=== PATIENT | male | born 1955 | race Caucasian/White ===

== ENCOUNTER 2017-05-02 15:17 | Inpatient (IN) ==
--- NOTE | 2017-05-02 15:58 | Emergency Department Note ---
Disposition Clinical Impression: Cellulitis Qualifiers: Site of cellulitis: extremity Site of cellulitis of extremity: lower extremity Laterality: unspecified laterality Qualified Code(s): L03.119 - Cellulitis of unspecified part of limb Fluid overload Qualifiers: Hypervolemia type: unspecified Qualified Code(s): E87.70 - Fluid overload, unspecified Disposition: Admitted As Inpatient Condition: Fair Referrals: NO,PCP [Non-Partnered Physician] - Forms: ED Satisfaction Letter Time of Disposition: 17:57 Extremity Problem HPI - General Chief complaint: ED Extremity Problem,Nontraumatic Stated complaint: swelling Time Seen by Provider: 05/02/17 15:51 Source: patient, family Limitations: no limitations Nursing Notes Reviewed: Yes Vital Signs Reviewed: Yes - History of Present Illness HPI Narrative: 61-year-old male comes in with a 24 pound weight gain over the last of week. Patient has a history of CHF. Also notes redness to the lower extremities warm to touch. Pt Subjective Complaint: extremity pain, extremity swelling Onset (ago): day(s) Consistency: constant Pain Scale: 8 Quality: aching Improves with: nothing Worsens with: nothing Associated symptoms: Reports: shortness of breath - Related Data Home Medications Medication Instructions Recorded Confirmed Albuterol Sulfate [Proair HFA] 1 puff IH Q6H 09/12/15 01/10/17 Amlodipine [Amlodipine Besylate] 10 mg PO DAILY 09/12/15 01/10/17 Diazepam [Valium] 10 mg PO BID PRN 09/12/15 01/10/17 Furosemide [Lasix] 40 mg PO BID 09/12/15 01/10/17 Labetalol [Trandate] 300 mg PO BID 09/12/15 01/10/17 Levothyroxine [Synthroid] 100 mcg PO DAILY 09/12/15 01/10/17 Metformin HCl [Glucophage] 1,000 mg PO BID 09/12/15 01/10/17 Acyclovir [Zovirax] 400 mg PO TID PRN 11/05/16 01/10/17 Bumetanide [Bumex] 1 mg PO DAILY 11/05/16 01/10/17 DiphenhydraMINE [Benadryl] 25 mg PO Q4HR PRN 11/05/16 01/10/17 Nitroglycerin [Nitrostat] 0.4 mg SL Q5M PRN 11/05/16 01/10/17 Oxycodone HCl/Acetaminophen 1 each PO QID PRN 11/05/16 01/10/17 [Percocet 10-325 mg Tablet] Potassium Chloride [K-Tab ER] 20 meq PO DAILY 11/05/16 01/10/17 Allergies Allergy/AdvReac Type Severity Reaction Status Date / Time No Known Allergies Allergy Verified 01/10/17 15:57 All systems ED: reviewed and negative except as stated. Constitutional: Denies: fever, chills, weakness, weight change Eyes: Denies: eye pain, eye discharge, vision change ENT ED: Denies: ear pain, throat pain, dental pain, hearing loss, epistaxis, congestion, dysphagia Cardiovascular: Denies: chest pain, palpitations, dyspnea on exertion, edema, syncope Respiratory: Denies: cough, dyspnea, wheezes, hemoptysis, stridor Gastrointestinal: Denies: abdominal pain, nausea, vomiting, diarrhea, constipation, hematemesis, melena, hematochezia Genitourinary: Denies: urgency, dysuria, frequency, hematuria Musculoskeletal: Reports: other (Lower extremity edema). Denies: back pain, neck pain, arthralgia, myalgia Integumentary: Denies: rash, abrasion, lesions Neurological: Denies: headache, weakness, numbness, paresthesias, confusion, abnormal gait, vertigo Psychiatric: Denies: anxiety, depression, suicidal thoughts, homicidal thoughts , auditory hallucinations, visual hallucinations Endocrine: Denies: fatigue Hematological/Lymphatic: Denies: easy bleeding, easy bruising Allergic/Immunologic: Denies: facial swelling, urticaria Past Medical History - Past Medical History Medical history: Reports: arthritis, asthma, CHF, diabetes, hyperlipidemia, hypertension, myocardial infarction, thyroid disease, other Surgical history: Reports: non-contributory, other (rib fractures; eye surgery) Psychiatric history: Reports: anxiety - Social History Smoking Status: Never smoker Smokeless Tobacco Status: No Alcohol use: Reports: none Drug use: Reports: none Physical Exam - General Limitations: no limitations General appearance: alert, in no apparent distress - Head Head exam: atraumatic, normocephalic, normal inspection - Eye Eye exam: Present: normal appearance, PERRL, EOMI - ENT ENT exam: normal exam, normal oropharynx, mucous membranes moist - Neck Neck exam: Present: normal inspection, full ROM, trachea midline - Chest Chest inspection: Present: normal inspection, symmetric chest wall rise - Respiratory Respiratory exam: Present: normal lung sounds bilaterally - Cardiovascular Cardiovascular exam: Present: regular rate, normal rhythm, normal heart sounds - Abdominal Exam Abdominal exam: Present: soft, Non-Tender. Absent: tenderness, distention, guarding, rebound, rigidity - Female Agricultural Extension Specialist present during exam: No - Extremities Exam Extremities exam: Present: pedal edema - Expanded Lower Extremity Exam Neurovascular/Tendon exam: Absent: motor deficit, sensory deficit, tendon deficit Gait: other - Back Exam Back exam: Present: normal inspection, full ROM. Absent: tenderness - Neurological Exam Neurological exam: Present: alert, oriented X3 - Psychiatric Psychiatric exam: Present: normal affect, normal mood - Skin Skin exam: Present: warm, dry, intact, normal color Course - Reevaluation(s) Reevaluation #1: 61-year-old with a history of CHF diabetes comes in with redness of his lower extremities a 24 pound weight gain over the last 2 weeks. Workup noted an elevated white count chest x-ray shows findings consistent with fluid overload versus pneumonia although his symptoms seemed to be more of fluid overload. Patient's lower legs that are red and appear to be cellulitic with Zosyn and vancomycin which will cover his lungs also. Diurese him with some IV Lasix. Time: 17:51 - Consultations Consultation #1: Discussed B[place] Abreu, admit Time: 17:51 Vital Signs Temperature 98.4 F 05/02/17 15:44 Pulse Rate 78 05/02/17 15:44 Respiratory Rate 18 05/02/17 15:44 Blood Pressure 172/84 05/02/17 15:44 O2 Sat by Pulse Oximetry 94 05/02/17 15:44 Temperature 98.4 F 05/02/17 15:44 Pulse Rate 76 05/02/17 16:41 Respiratory Rate 18 05/02/17 16:41 Blood Pressure 165/88 05/02/17 16:41 O2 Sat by Pulse Oximetry 95 05/02/17 16:41 Oxygen Delivery Oxygen Delivery Room Air Extremity Problem, Nontraumati - Lab Data Result diagrams: 05/02/17 16:31 05/02/17 16:31 Lab Results 0605/02/17 05/02/17 Range/Units 16:31 16:31 16:31 WBC 13.9 H (4.3-11.1) K/mcL RBC 4.71 (4.19-5.50) M/mcL Hgb 10.1 L (12.9-16.9) g/dL Hct 34.9 L (37.5-50.1) % MCV 74.1 L (83.0-100.0) fL MCH 21.4 L (28.0-33.3) pg MCHC 28.9 L (31.6-35.5) g/dL RDW 17.1 H (11.5-14.5) % Plt Count 503 H (140-400) K/mcL MPV 8.6 L (9.4-12.4) fL Immature Gran % 0.4 (0-4) % Seg Neutrophils % 83.0 % Lymphocytes % 9.1 % Monocytes % 6.0 % Eosinophils % 1.0 % Basophils % 0.5 % Neutrophils # 11.5 H (1.6-8.9) K/mcL Lymphocytes # 1.3 (0.6-4.6) K/mcL Monocytes # 0.8 (0.0-1.3) K/mcL Eosinophils # 0.1 (0.0-0.6) K/mcL Basophils # 0.1 (0.0-0.2) K/mcL Immature Plt Fraction 1.5 (1.1-6.1) % Hypochromasia Present A (Not Present) Sodium 140 (136-145) mEq/L Potassium 3.3 L (3.5-4.5) mEq/L Chloride 103 (98-109) mEq/L Carbon Dioxide 26 (19-29) mEq/L BUN 7 L (8-26) mg/dL Creatinine 0.88 (0.72-1.25) mg/dL Est GFR ( Amer) > 60 (> 60) Est GFR (Non-Af Amer) > 60 (> 60) BUN/Creatinine Ratio 8 (6-26) Glucose 101 H (70-99) mg/dL Calculated Osmolality 288 (280-300) Lactic Acid 1.8 (0.5-2.2) mmol/L Calcium 9.2 (8.6-10.8) mg/dL Troponin I (0-0.03) ng/mL B-Natriuretic Peptide (0-100) pg/mL 05/02/17 05/02/17 Range/Units 16:31 16:31 WBC (4.3-11.1) K/mcL RBC (4.19-5.50) M/mcL Hgb (12.9-16.9) g/dL Hct (37.5-50.1) % MCV (83.0-100.0) fL MCH (28.0-33.3) pg MCHC (31.6-35.5) g/dL RDW (11.5-14.5) % Plt Count (140-400) K/mcL MPV (9.4-12.4) fL Immature Gran % (0-4) % Seg Neutrophils % % Lymphocytes % % Monocytes % % Eosinophils % % Basophils % % Neutrophils # (1.6-8.9) K/mcL Lymphocytes # (0.6-4.6) K/mcL Monocytes # (0.0-1.3) K/mcL Eosinophils # (0.0-0.6) K/mcL Basophils # (0.0-0.2) K/mcL Immature Plt Fraction (1.1-6.1) % Hypochromasia (Not Present) Sodium (136-145) mEq/L Potassium (3.5-4.5) mEq/L Chloride (98-109) mEq/L Carbon Dioxide (19-29) mEq/L BUN (8-26) mg/dL Creatinine (0.72-1.25) mg/dL Est GFR ( Amer) (> 60) Est GFR (Non-Af Amer) (> 60) BUN/Creatinine Ratio (6-26) Glucose (70-99) mg/dL Calculated Osmolality (280-300) Lactic Acid (0.5-2.2) mmol/L Calcium (8.6-10.8) mg/dL Troponin I 0.01 (0-0.03) ng/mL B-Natriuretic Peptide 302 H (0-100) pg/mL
[2017-05-02 16:39] LABS: Hemoglobin 10.1 g/dL (12.9-16.9); Mean Corpuscular HGB Conc 28.9 g/dL (31.6-35.5)
[2017-05-02 16:41] LABS: Basophils # 0.1 K/mcL (0.0-0.2); Basophils % 0.5 %; Eosinophils # 0.1 K/mcL (0.0-0.6); Hematocrit 34.9 % (37.5-50.1); Immature Granulocytes % 0.4 % (0-4); Immature Platelets 1.5 % (1.1-6.1); Lymphocytes # 1.3 K/mcL (0.6-4.6); Lymphocytes % 9.1 %; Mean Corpuscular Hemoglobin 21.4 pg (28.0-33.3); Mean Corpuscular Volume 74.1 fL (83.0-100.0); Mean Platelet Volume 8.6 fL (9.4-12.4); Monocytes # 0.8 K/mcL (0.0-1.3); Neutrophils # 11.5 K/mcL (1.6-8.9); Platelet Count 503 K/mcL (140-400); Red Blood Count 4.71 M/mcL (4.19-5.50); Red Cell Distribution Width 17.1 % (11.5-14.5)
[2017-05-02 16:50] LABS: BUN/Creatinine Ratio 8 (6-26); Blood Urea Nitrogen 7 mg/dL (8-26); Calcium 9.2 mg/dL (8.6-10.8); Carbon Dioxide 26 mEq/L (19-29); Chloride 103 mEq/L (98-109); Glucose 101 mg/dL (70-99); Osmolality,Calculated 288 (280-300); Potassium 3.3 mEq/L (3.5-4.5); Sodium 140 mEq/L (136-145); eGFR For African Americans > 60 (> 60); eGFR For Non-African Americans > 60 (> 60)
[2017-05-02 16:57] LABS: Hypochromasia Present (Not Present)
[2017-05-02] MEDS ORDERED: Furosemide 40 MG/4 ML VIAL IVP ONE (17:40)
[2017-05-02] MEDS ORDERED: Vancomycin 1,000 MG in D5% in Water 250 ML IVPB ONE (17:40)
[2017-05-02] MEDS ORDERED: Piperacillin/Tazobactam 3.375 GM in D5% in Water (Mini-Bag+) 100 ML IVPB ONE (17:40)
[2017-05-02] MEDS ORDERED: Acetaminophen 325 MG TABLET PO PRN (19:47)
[2017-05-02] MEDS ORDERED: Naloxone 0.4 MG/ML INJ IVP PRN (19:47)
[2017-05-02] MEDS ORDERED: D5% in Water 1,000 ML IVC PRN (19:51)
[2017-05-02] MEDS ORDERED: *HR* Dextrose 50 % in Water (Syg) 50 ML SYRINGE IVP PRN (19:51)
[2017-05-02] MEDS ORDERED: Dextrose Gel 15 GM PO PRN ×2 (19:51)
[2017-05-02] MEDS ORDERED: Insulin LISPRO 300 UNITS/3 ML VIAL SQ SCH (21:00)
--- NOTE | 2017-05-02 22:35 | Internal Med History&Physical ---
Date of Encounter: 05/02/17 Time of Encounter: 21:00 Assessment and Plan (1) Acute exacerbation of CHF (congestive heart failure) Current visit: Yes Status: Acute Patient has been experiencing 25 pound weight gain over the past 2 weeks shortness of breath with exertion or orthopnea lower extremity edema decreased urinary output despite Lasix use. Chest x-rays consistent with fluid overload versus pneumonia. We will continue IV Lasix twice a day, 2 monitor intake and output daily weights 3 1500 mL fluid restriction 4 low sodium diet 5 oxygen as needed maintain SPO2 greater 92% Qualifiers: Congestive heart failure type: diastolic Qualified Code(s): I50.33 - Acute on chronic diastolic (congestive) heart failure (2) MARCI (obstructive sleep apnea) Current visit: No Status: Chronic 1 continue with CPAP at night (3) Diabetes mellitus Current visit: No Status: Chronic 1 we will hold oral antidiabetic for now Accu-Cheks before meals at bedtime with sliding-scale insulin Qualifiers: Diabetes mellitus type: type 2 Diabetes mellitus complication status: without complication Diabetes mellitus correction insulin use: without correction use Qualified Code(s): E11.9 - Type 2 diabetes mellitus without complications (4) Hypokalemia Current visit: No Status: Acute Potassium 3.3 We will replace potassium and recheck (5) Hypertension Current visit: No Status: Acute We will continue patient's home medications Qualifiers: Hypertension type: essential hypertension Qualified Code(s): I10 - Essential (primary) hypertension (6) DVT prophylaxis Current visit: Yes Status: Acute [facility] Internal Medicine - H&P: HPI Chief complaint: lower extremity edema Admitted From: Emergency Dept Plans for Post Hospital Care: Home History of present illness: Mr. Sommer is a 61 year old male past medical history of congestive heart failure obstructive sleep apnea hyperlipidemia hypertension [place] hypothyroid diabetes. According to the patient he has experienced 24 pound weight gain over the last 2 weeks. Patient does have a history of congestive heart failure is also experiencing lower extremity edema shortness of breath on exertion orthopnea he denies any chest pain. He does complain of lower extremity skin weeping with pain and tenderness particularly to his left leg. He has had difficulty ambulating and completing his ADLs. He admits to decreased urinary output despite Lasix use. He presented to the ER with the above complaints according to ER records lab work did not reveal some hypernatremia potassium 3.3 troponin was 0.01 WBC 13.9 chest x-ray was consistent with fluid overload versus possible pneumonia. He was given IV Lasix with blood cultures obtained patient was given Zosyn and vancomycin in the ER and has been admitted for further workup and evaluation. Presently patient is alert and appropriate he does not appear to be any respiratory distress. He denies any chest pain or shortness of breath at this time however he does admit to service of breath on exertion. His lung sounds have crackles in the bases bilaterally heart sounds with S1-S2 regular no rubs clicks gallops or murmurs noted. He does have 3-4+ pitting edema of lower extremities up to his knees bilaterally. His legs have multiple small wounds and ferrous stages of healing. Left leg is tender to palpation however his leg is only slightly red. Abdomen is obese with umbilical hernia noted soft nontender to palpation. He is hemodynamically stable at this time. I reviewed this case with Dr Hall who agrees with plan Past Med Surg Social Fam HX - Past Medical History Medical history: arthritis, asthma, CHF, diabetes, hyperlipidemia, hypertension , myocardial infarction, thyroid disease, other Psychiatric history: anxiety - Past Surgical History Surgical History: non-contributory, other - Social History Smoking Status: Never smoker Smokeless Tobacco Status: No Alcohol use: none Drug use: none - Family History Mother Family Member Ethnicity: Non- Age at : 65 Cause of : Heart Failure Hx Family Cardiac Disorders: Yes Hx Family Respiratory Disorders: Yes (COPD) Hx Family Endocrine Disorder: Yes (Diabetes) Father Family Member Ethnicity: Non- Age at : 33 Cause of : Heart Attack Hx Family Cardiac Disorders: Yes Hx Family Endocrine Disorder: Yes (Diabetes) Internal Medicine - H&P: Meds Albuterol Sulfate [Proair HFA] 1 puff IH Q6H 09/12/15 [History] Amlodipine [Amlodipine Besylate] 10 mg PO DAILY 09/12/15 [History] Diazepam [Valium] 10 mg PO BID PRN 09/12/15 [History] Furosemide [Lasix] 40 mg PO BID 09/12/15 [History] Labetalol [Trandate] 300 mg PO BID 09/12/15 [History] Levothyroxine [Synthroid] 100 mcg PO DAILY 09/12/15 [History] Metformin HCl [Glucophage] 1,000 mg PO BID 09/12/15 [History] Acyclovir [Zovirax] 400 mg PO TID PRN 11/05/16 [History] Bumetanide [Bumex] 1 mg PO DAILY 11/05/16 [History] DiphenhydraMINE [Benadryl] 25 mg PO Q4HR PRN 11/05/16 [History] Nitroglycerin [Nitrostat] 0.4 mg SL Q5M PRN 11/05/16 [History] Oxycodone HCl/Acetaminophen [Percocet 10-325 mg Tablet] 1 each PO QID PRN [History] Potassium Chloride [K-Tab ER] 20 meq PO DAILY 11/05/16 [History] Allergies No Known Allergies Allergy (Verified 01/10/17 15:57) All Systems PM: A 10-system review of systems was performed and is negative for pertinent findings except as documented above in the HPI. - Constitutional Constitutional: no chills, no fever(s), no night sweats - EENT Eyes: no change in vision, no discharge, no pain, no photophobia Nose, mouth and throat: no dysphagia, no nasal discharge, no neck pain, no sore throat - Cardiovascular Cardiovascular ROS IM: dyspnea on exertion, edema, no chest pain, no diaphoresis , no dyspnea, no lightheadedness, no palpitations, no syncope - Respiratory Respiratory: dyspnea on exertion, no cough, no dyspnea, no wheezing, no excessive phlegm production - Gastrointestinal Gastrointestinal: no abdominal pain, no diarrhea, no hematemesis, no hematochezia, no melena, no nausea, no vomiting - Musculoskeletal Musculoskeletal ROS IM: no numbness, no tingling - Integumentary Integumentary IM: erythema, sores - Neurological Neurological ROS: no confusion, no convulsions, no focal weakness, no numbness, no tingling, no tremor(s) - Hematologic/Lymphatic Hematologic/Lymphatic: no easy bruising - Constitutional Vitals: Temp Pulse Resp BP Pulse Ox 98 F 88 18 181/77 95 05/02/17 20:01 05/02/17 20:01 05/02/17 20:01 05/02/17 20:01 05/02/17 20:01 General appearance: Present: A&O X 3, morbidly obese - Head Head exam: Present: atraumatic, normocephalic - Eye Eye exam: Present: PERRL, conjuntiva pink, sclera anicteric Pupils: Present: PERRL - Neck Neck exam general surgery: Present: supple, trachea midline. Absent: lymphadenopathy - Respiratory Respiratory exam: Absent: accessory muscle use, rales, rhonchi, wheezes Additional comments: Crackles in bases bilaterally - Cardiovascular Cardiovascular exam: Present: RRR, +S1, +S2. Absent: diastolic murmur, gallop, rubs, systolic murmur - GI/Abdominal GI/Abdominal exam: Present: hernia, normal bowel sounds, soft, no peritoneal signs. Absent: distended, tenderness - Extremities Exam Extremities exam: Present: warm, radial pulses palpable and symetrical. Absent : calf tenderness, cyanotic, pedal edema - Neurological Exam Neurological exam: Present: CN II-XII intact, oriented X3, no focal deficits. Absent: pronater drift, facial droop, speech deficit - Skin Skin exam: Present: dry, intact Internal Med - H&P Results - Labs CBC & Chem 7: 05/02/17 16:31 05/02/17 16:31 - EKG Data EKG shows normal: sinus rhythm - Diagnostic Studies Other Images Additional comments: Chest X-Ray 05/02/17 15:55 IMPRESSION: 1. Asymmetric opacity within the right perihilar space and right lung base, likely representing asymmetric pulmonary edema and/or pneumonia. 2. Mild right hilar enlargement, which could represent either lymphadenopathy or a right hilar mass. Consider a follow-up chest CT with contrast for more detailed evaluation. 3. Stable cardiomegaly. D/ / Rl Navarro MD / Rl Navarro MD Interpreting Provider: Rl Navarro MD
[2017-05-03] MEDS ORDERED: *HR* OxyCODONE/APAP 5/325 TABLET PO PRN
[2017-05-03] MEDS ORDERED: Nitroglycerin 0.4 MG TAB.SUBL SL PRN (00:01)
[2017-05-03] MEDS ORDERED: diazePAM 10 MG TABLET PO SCH (00:15)
[2017-05-03 04:45] LABS: Basophils # 0.1 K/mcL (0.0-0.2); Basophils % 0.5 %; Eosinophils # 0.1 K/mcL (0.0-0.6); Eosinophils % 0.8 %; Hematocrit 32.1 % (37.5-50.1); Hemoglobin 9.3 g/dL (12.9-16.9); Immature Granulocytes % 0.5 % (0-4); Immature Platelets 1.8 % (1.1-6.1); Lymphocytes # 1.4 K/mcL (0.6-4.6); Lymphocytes % 10.5 %; Mean Corpuscular Hemoglobin 21.2 pg (28.0-33.3); Mean Corpuscular Volume 73.1 fL (83.0-100.0); Mean Platelet Volume 8.8 fL (9.4-12.4); Monocytes # 0.9 K/mcL (0.0-1.3); Monocytes % 6.7 %; Neutrophils # 10.8 K/mcL (1.6-8.9); Platelet Count 511 K/mcL (140-400); Red Blood Count 4.39 M/mcL (4.19-5.50)
[2017-05-03 04:48] LABS: BUN/Creatinine Ratio 7 (6-26); Blood Urea Nitrogen 6 mg/dL (8-26); Calcium 8.7 mg/dL (8.6-10.8); Carbon Dioxide 29 mEq/L (19-29); Chloride 104 mEq/L (98-109); Glucose 101 mg/dL (70-99); Osmolality,Calculated 292 (280-300); Potassium 3.1 mEq/L (3.5-4.5); Sodium 142 mEq/L (136-145); eGFR For African Americans > 60 (> 60); eGFR For Non-African Americans > 60 (> 60)
[2017-05-03 05:21] VITALS: BP 150/73
[2017-05-03] MEDS ORDERED: *HR* Enoxaparin 40 MG/0.4 ML SYRINGE SQ SCH (07:00)
[2017-05-03] MEDS ORDERED: Insulin LISPRO 300 UNITS/3 ML VIAL SQ SCH (07:30)
[2017-05-03] MEDS ORDERED: Potassium Chloride Elixir 20 MEQ/15 ML UDC PO ONE (07:52)
[2017-05-03] MEDS ORDERED: Furosemide 40 MG/4 ML VIAL IVP SCH (08:00)
[2017-05-03] MEDS ORDERED: Bumetanide 1 MG TABLET PO SCH (09:00)
--- NOTE | 2017-05-03 17:55 | Electrocardiograph Report ---
[place] [id number] Test Date: 2017-05-02 Pat Name: Desi Sommer Department: 105 Room: [facility] Gender: M Head Bookkeeper: [facility] : 1955 Requested By: Sae Queen Order Number: [id number] Reading MD: Camilo Dia MD Measurements Intervals [place] Rate: 76 P: 89 DE: 174 QRS: 57 QRSD: 92 T: 10 QT: 413 QTc: 443 Interpretive Statements SINUS RHYTHM WITH SINUS ARRHYTHMIA Poor R wave progression Electronically Signed On 05-03-2017 17:53:51 EDT by Camilo Dia MD
== END 2017-05-03 07:12 | disposition home or self-care (01) | DRG 194 ==
LOC: 2ANU 15:17 → EMEROO 15:17 → 2ANU 19:35
PROVIDERS: ADMIT Nurse Practitioner Family; ATTEND Internal Medicine

== ENCOUNTER 2019-06-27 13:05 | Inpatient (IN) ==
[2019-06-27] MEDS ORDERED: Ondansetron 4 MG/2 ML VIAL IVP PRN (16:01)
[2019-06-27] MEDS ORDERED: Naloxone 0.4 MG/ML INJ IVP PRN (16:24)
[2019-06-27] MEDS ORDERED: D5% in Water 1,000 ML IVC PRN (16:41)
[2019-06-27] MEDS ORDERED: Dextrose Gel 15 GM/37.5 ML TUBE PO PRN ×2 (16:41)
[2019-06-27] MEDS ORDERED: *HR* Dextrose 50 % in Water (Syg) 50 ML SYRINGE IVP PRN (16:41)
[2019-06-27 17:01] LABS: Basophils # 0.1 K/mcL (0.0-0.2); Basophils % 0.6 %; Eosinophils # 0.1 K/mcL (0.0-0.6); Eosinophils % 0.5 %; Hematocrit 30.6 % (37.5-50.1); Hemoglobin 9.1 g/dL (12.9-16.9); Immature Granulocytes % 0.4 % (0-4); Lymphocytes # 1.3 K/mcL (0.6-4.6); Lymphocytes % 9.6 %; Mean Corpuscular HGB Conc 29.7 g/dL (31.6-35.5); Mean Corpuscular Hemoglobin 23.3 pg (28.0-33.3); Mean Corpuscular Volume 78.5 fL (83.0-100.0); Mean Platelet Volume 8.8 fL (9.4-12.4); Monocytes # 1.1 K/mcL (0.0-1.3); Monocytes % 8.5 %; Neutrophils # 10.7 K/mcL (1.6-8.9); Platelet Count 364 K/mcL (140-400); Red Cell Distribution Width 16.4 % (11.5-14.5); Segmented Neutrophils % 80.4 %; White Blood Count 13.3 K/mcL (4.3-11.1)
[2019-06-27] MEDS: Insulin LISPRO 300 UNITS/3 ML VIAL SQ SCH (17:22)
[2019-06-27] MEDS: *HR* Heparin 5,000 UNIT/ML VIAL SQ SCH (17:28)
[2019-06-27] MEDS ORDERED: Furosemide 80 MG in 0.9 % Sodium Chloride 50 ML IVP ONE (17:50)
[2019-06-27] MEDS: *HR* OxyCODONE Immed Rel 5 MG TABLET PO PRN (18:52)
[2019-06-27] MEDS: Piperacillin/Tazobactam 3.375 GM in 0.9 % Sodium Chloride Mini Bag 100 ML IVPB SCH (22:07)
[2019-06-28] MEDS: Insulin LISPRO 300 UNITS/3 ML VIAL SQ SCH ×4 (00:39→17:25)
[2019-06-28] MEDS: *HR* OxyCODONE Immed Rel 5 MG TABLET PO PRN ×4 (03:54→23:00)
[2019-06-28 04:55] LABS: INR 1.4; Prothrombin Time 15.8 Seconds (9.4-12.1)
[2019-06-28 05:09] LABS: Albumin 3.5 g/dL (3.5-5.7); Albumin/Globulin Ratio 1.1 (1.1-2.2); Bilirubin,Total 0.5 mg/dL (0.3-1.0); Calcium 8.6 mg/dL (8.6-10.3); Globulin 3.2 g/dL (2.4-3.5); Phosphorous 4.3 mg/dL (2.7-4.5); Potassium 3.7 mEq/L (3.5-5.1); Total Protein 6.7 g/dL (6.4-8.9)
[2019-06-28] MEDS: *HR* Heparin 5,000 UNIT/ML VIAL SQ SCH ×2 (06:10→17:34)
[2019-06-28 08:11] LABS: Basophils # 0.1 K/mcL (0.0-0.2); Basophils % 0.6 %; Eosinophils # 0.3 K/mcL (0.0-0.6); Eosinophils % 2.8 %; Hematocrit 30.4 % (37.5-50.1); Hemoglobin 8.9 g/dL (12.9-16.9); Immature Granulocytes % 0.3 % (0-4); Lymphocytes # 1.1 K/mcL (0.6-4.6); Lymphocytes % 10.8 %; Mean Corpuscular HGB Conc 29.3 g/dL (31.6-35.5); Mean Corpuscular Volume 81.9 fL (83.0-100.0); Monocytes % 9.3 %; Neutrophils # 7.8 K/mcL (1.6-8.9); Platelet Count 368 K/mcL (140-400); Red Blood Count 3.71 M/mcL (4.19-5.50); Segmented Neutrophils % 76.2 %; White Blood Count 10.3 K/mcL (4.3-11.1)
[2019-06-28 08:46] LABS: Estimated Average Glucose 151 mg/dl
[2019-06-28] MEDS: Piperacillin/Tazobactam 3.375 GM in 0.9 % Sodium Chloride Mini Bag 100 ML IVPB SCH ×3 (09:32→23:00)
[2019-06-28] MEDS: Aspirin Enteric Coated 81 MG Tablet PO SCH (16:19)
[2019-06-28] MEDS ORDERED: Acetaminophen 325 MG TABLET PO ONE (19:09)
[2019-06-28 20:18] LABS: Bilirubin,Urine Negative (Negative); Blood,Urine Negative (Negative); Clarity,Urine Clear (Clear); Color,Urine Yellow (Yellow); Glucose,Urine (UA) Normal (Normal); Ketones,Urine Negative (Negative); Leukocyte Esterase,Urine Negative (Negative); Nitrite,Urine Negative (Negative); Protein,Urine 30 mg/dL (Neg-Trace); Specific Gravity,Urine 1.015 (1.010-1.025); Urobilinogen,Urine Normal (Normal)
[2019-06-28 20:19] LABS: Bacteria,Urine None Seen per hpf (None-Few); Hyaline Casts,Urine None Seen per lpf (None-Few); RBC,Urine 0-3 per hpf (0-3); Squamous Epithelial Cell,Urine Moderate per lpf (None-Few); WBC,Urine 0-3 per hpf (0-3)
[2019-06-28 20:27] LABS: Sodium, Urine 14.3 mEq/L
[2019-06-29] MEDS: Insulin LISPRO 300 UNITS/3 ML VIAL SQ SCH ×5 (00:13→20:51)
[2019-06-29] MEDS: *HR* Heparin 5,000 UNIT/ML VIAL SQ SCH ×2 (05:07→17:46)
[2019-06-29 05:32] LABS: Hemoglobin 8.4 g/dL (12.9-16.9)
[2019-06-29 05:34] LABS: Hematocrit 29.2 % (37.5-50.1); Mean Corpuscular HGB Conc 28.8 g/dL (31.6-35.5); Mean Corpuscular Hemoglobin 23.7 pg (28.0-33.3); Mean Corpuscular Volume 82.5 fL (83.0-100.0); Mean Platelet Volume 8.7 fL (9.4-12.4); Platelet Count 345 K/mcL (140-400); Red Blood Count 3.54 M/mcL (4.19-5.50); Red Cell Distribution Width 15.9 % (11.5-14.5); White Blood Count 9.4 K/mcL (4.3-11.1)
[2019-06-29 05:47] LABS: INR 1.4; Prothrombin Time 15.5 Seconds (9.4-12.1)
[2019-06-29 06:52] LABS: Chol/HDL Ratio 3.9 (0-4.9)
[2019-06-29 06:55] LABS: Albumin 3.5 g/dL (3.5-5.7); Albumin/Globulin Ratio 1.1 (1.1-2.2); Bilirubin,Total 0.4 mg/dL (0.3-1.0); Calcium 8.6 mg/dL (8.6-10.3); Globulin 3.3 g/dL (2.4-3.5); Potassium 3.4 mEq/L (3.5-5.1); Total Protein 6.8 g/dL (6.4-8.9)
[2019-06-29] MEDS ORDERED: Acetaminophen IV 1,000 MG/100 ML INFUS..BTL IVPB ONE (08:43)
[2019-06-29] MEDS: Aspirin Enteric Coated 81 MG Tablet PO SCH (09:34)
[2019-06-29] MEDS: Piperacillin/Tazobactam 3.375 GM in 0.9 % Sodium Chloride Mini Bag 100 ML IVPB SCH (09:50)
[2019-06-29] MEDS ORDERED: *HR* OxyCODONE Immed Rel 5 MG TABLET PO PRN (14:11)
[2019-06-29] MEDS ORDERED: Ipratropium/Albuterol Neb 3 ML IH PRN (14:13)
[2019-06-29] MEDS: Bumetanide 1 MG TABLET PO SCH (17:06)
[2019-06-29] MEDS: Budesonide/Formoterol 160/4.5 1 PUFF INH IH SCH (20:01)
[2019-06-29] MEDS: GuaiFENesin/Dextromethorphan TABLET PO SCH (21:23)
[2019-06-29] MEDS ORDERED: *HR* HYDROcodone/Acet 5/325 mg TABLET PO PRN (21:58)
[2019-06-30] MEDS ORDERED: *HR* OxyCODONE Immed Rel 5 MG TABLET PO PRN (00:45)
[2019-06-30 04:28] LABS: Basophils # 0.1 K/mcL (0.0-0.2); Basophils % 0.7 %; Eosinophils # 0.4 K/mcL (0.0-0.6); Eosinophils % 3.2 %; Hematocrit 30.6 % (37.5-50.1); Hemoglobin 8.9 g/dL (12.9-16.9); Immature Granulocytes % 0.4 % (0-4); Lymphocytes # 1.2 K/mcL (0.6-4.6); Mean Corpuscular HGB Conc 29.1 g/dL (31.6-35.5); Mean Corpuscular Hemoglobin 23.5 pg (28.0-33.3); Mean Platelet Volume 9.1 fL (9.4-12.4); Monocytes % 8.7 %; Neutrophils # 8.3 K/mcL (1.6-8.9); Platelet Count 384 K/mcL (140-400); Red Blood Count 3.78 M/mcL (4.19-5.50); White Blood Count 10.9 K/mcL (4.3-11.1)
[2019-06-30 04:42] LABS: Calcium 8.7 mg/dL (8.6-10.3); Magnesium 2.2 mg/dL (1.6-2.6); Potassium 3.5 mEq/L (3.5-5.1)
[2019-06-30 04:43] LABS: % Iron Saturation 5 % (20-55); Iron 17 mcg/dL (65-175); Transferrin 260 mg/dL (203-362)
[2019-06-30 05:19] LABS: Anisocytosis 1+ (Not Present); Hypochromasia Present (Not Present); Macrocytosis Present (Not Present); Platelet Estimate Normal (Normal); Polychromasia 1+ (Not Present)
[2019-06-30] MEDS: *HR* Heparin 5,000 UNIT/ML VIAL SQ SCH ×2 (05:21→17:12)
[2019-06-30] MEDS: Budesonide/Formoterol 160/4.5 1 PUFF INH IH SCH ×2 (07:47→19:57)
[2019-06-30] MEDS: Aspirin Enteric Coated 81 MG Tablet PO SCH (09:45)
[2019-06-30] MEDS: Bumetanide 1 MG TABLET PO SCH ×2 (09:45→17:12)
[2019-06-30] MEDS: Insulin LISPRO 300 UNITS/3 ML VIAL SQ SCH ×4 (09:45→22:26)
[2019-06-30] MEDS: GuaiFENesin/Dextromethorphan TABLET PO SCH ×2 (09:45→22:32)
[2019-06-30] MEDS ORDERED: *HR* OxyCODONE/APAP 10/325 TABLET PO PRN (11:52)
[2019-06-30] MEDS ORDERED: Furosemide 80 MG in 0.9 % Sodium Chloride 50 ML IV ONE (12:17)
[2019-06-30] MEDS: *HR* OxyCODONE/APAP 10/325 TABLET PO PRN (22:32)
[2019-07-01] MEDS: *HR* Heparin 5,000 UNIT/ML VIAL SQ SCH ×2 (06:01→17:09)
[2019-07-01] MEDS: Budesonide/Formoterol 160/4.5 1 PUFF INH IH SCH ×2 (08:06→19:53)
[2019-07-01] MEDS ORDERED: Iron Sucrose Complex 400 MG in 0.9 % Sodium Chloride 250 ML IVPB ONE (08:34)
[2019-07-01] MEDS: Insulin LISPRO 300 UNITS/3 ML VIAL SQ SCH ×4 (09:01→22:12)
[2019-07-01] MEDS: GuaiFENesin/Dextromethorphan TABLET PO SCH ×2 (09:03→21:06)
[2019-07-01] MEDS: Aspirin Enteric Coated 81 MG Tablet PO SCH (09:03)
[2019-07-01] MEDS: Bumetanide 1 MG TABLET PO SCH ×2 (09:04→16:30)
[2019-07-01 10:40] LABS: Monocytes % 8.2 %
[2019-07-01 10:42] LABS: Basophils # 0.1 K/mcL (0.0-0.2); Basophils % 0.8 %; Eosinophils # 0.3 K/mcL (0.0-0.6); Eosinophils % 3.3 %; Hematocrit 33.1 % (37.5-50.1); Hemoglobin 9.3 g/dL (12.9-16.9); Immature Granulocytes % 0.2 % (0-4); Lymphocytes # 0.9 K/mcL (0.6-4.6); Lymphocytes % 10.1 %; Mean Corpuscular HGB Conc 28.1 g/dL (31.6-35.5); Mean Corpuscular Hemoglobin 23.4 pg (28.0-33.3); Mean Corpuscular Volume 83.2 fL (83.0-100.0); Mean Platelet Volume 9.1 fL (9.4-12.4); Monocytes # 0.7 K/mcL (0.0-1.3); Neutrophils # 6.7 K/mcL (1.6-8.9); Platelet Count 417 K/mcL (140-400); Red Blood Count 3.98 M/mcL (4.19-5.50); Red Cell Distribution Width 16.2 % (11.5-14.5); Segmented Neutrophils % 77.4 %; White Blood Count 8.7 K/mcL (4.3-11.1)
[2019-07-01 10:59] LABS: BUN/Creatinine Ratio 13 (6-26); Blood Urea Nitrogen 18 mg/dL (8-23); Calcium 8.8 mg/dL (8.6-10.3); Carbon Dioxide 28 mEq/L (23-29); Chloride 100 mEq/L (98-107); Glucose 123 mg/dL (70-105); Osmolality,Calculated 291 (280-300); Potassium 3.4 mEq/L (3.5-5.1); Sodium 139 mEq/L (136-145); eGFR For African Americans > 60 (> 60); eGFR For Non-African Americans 54 (> 60)
[2019-07-01 11:05] LABS: Platelet Estimate Normal (Normal)
[2019-07-01 11:06] LABS: Anisocytosis 1+ (Not Present); Hypochromasia Present (Not Present)
[2019-07-01] MEDS: *HR* OxyCODONE/APAP 10/325 TABLET PO PRN (22:13)
[2019-07-02] MEDS: *HR* Heparin 5,000 UNIT/ML VIAL SQ SCH (05:44)
[2019-07-02] MEDS: Budesonide/Formoterol 160/4.5 1 PUFF INH IH SCH (07:39)
[2019-07-02] MEDS: Insulin LISPRO 300 UNITS/3 ML VIAL SQ SCH ×2 (08:08→11:16)
[2019-07-02] MEDS ORDERED: Iron Sucrose Complex 250 MG in 0.9 % Sodium Chloride 250 ML IVPB SCH (09:00)
[2019-07-02] MEDS ORDERED: metOLazone 2.5 MG TABLET PO SCH (09:00)
[2019-07-02] MEDS: Bumetanide 1 MG TABLET PO SCH (09:08)
[2019-07-02] MEDS: GuaiFENesin/Dextromethorphan TABLET PO SCH (09:08)
[2019-07-02] MEDS: Aspirin Enteric Coated 81 MG Tablet PO SCH (09:09)
[2019-07-02 09:38] LABS: Hemoglobin 9.5 g/dL (12.9-16.9); Nucleated Red Blood Cells 0.2 /100 WBC (0)
[2019-07-02 09:40] LABS: Basophils # 0.1 K/mcL (0.0-0.2); Basophils % 1.1 %; Eosinophils # 0.3 K/mcL (0.0-0.6); Eosinophils % 3.2 %; Immature Granulocytes % 0.7 % (0-4); Lymphocytes % 12.5 %; Mean Corpuscular HGB Conc 28.8 g/dL (31.6-35.5); Mean Corpuscular Hemoglobin 23.5 pg (28.0-33.3); Mean Corpuscular Volume 81.7 fL (83.0-100.0); Mean Platelet Volume 8.6 fL (9.4-12.4); Monocytes # 0.9 K/mcL (0.0-1.3); Monocytes % 10.2 %; Platelet Count 348 K/mcL (140-400); Red Blood Count 4.04 M/mcL (4.19-5.50); Red Cell Distribution Width 16.3 % (11.5-14.5); Segmented Neutrophils % 72.3 %; White Blood Count 8.3 K/mcL (4.3-11.1)
[2019-07-02 09:59] LABS: Calcium 8.9 mg/dL (8.6-10.3); Potassium 3.9 mEq/L (3.5-5.1)
[2019-07-02 10:07] LABS: Platelet Estimate Normal (Normal); Polychromasia 1+ (Not Present)
[2019-07-02 10:08] LABS: Anisocytosis 1+ (Not Present); Hypochromasia Present (Not Present)
[2019-07-02] MEDS: *HR* OxyCODONE/APAP 10/325 TABLET PO PRN ×2 (10:23→16:15)
[2019-07-02 11:23] VITALS: BP 157/94
== END 2019-07-02 16:51 | disposition home or self-care (01) ==
LOC: 3ANU → SUATTDRO 14:45
PROVIDERS: ADMIT Internal Medicine; ATTEND Student in an Organized Health Care Education/Training Program

== ENCOUNTER 2019-07-04 12:14 | Inpatient (IN) ==
[2019-07-04] MEDS ORDERED: *HR* Metoprolol 5 MG/5 ML VIAL IVP ONE ×3 (12:40→20:35)
[2019-07-04 12:52] LABS: Basophils # 0.1 K/mcL (0.0-0.2); Basophils % 0.7 %; Eosinophils # 0.3 K/mcL (0.0-0.6); Eosinophils % 2.5 %; Hematocrit 33.3 % (37.5-50.1); Hemoglobin 9.8 g/dL (12.9-16.9); Immature Granulocytes % 0.6 % (0-4); Lymphocytes # 0.8 K/mcL (0.6-4.6); Mean Corpuscular HGB Conc 29.4 g/dL (31.6-35.5); Mean Corpuscular Hemoglobin 23.7 pg (28.0-33.3); Mean Corpuscular Volume 80.4 fL (83.0-100.0); Mean Platelet Volume 8.9 fL (9.4-12.4); Monocytes # 0.9 K/mcL (0.0-1.3); Neutrophils # 8.1 K/mcL (1.6-8.9); Platelet Count 371 K/mcL (140-400); Red Blood Count 4.14 M/mcL (4.19-5.50); Red Cell Distribution Width 17.2 % (11.5-14.5); Segmented Neutrophils % 79.2 %; White Blood Count 10.2 K/mcL (4.3-11.1)
[2019-07-04 13:13] LABS: Calcium 8.6 mg/dL (8.6-10.3); Magnesium 1.5 mg/dL (1.6-2.6); Potassium 2.9 mEq/L (3.5-5.1); Troponin I 0.03 ng/mL (< 0.04)
[2019-07-04] MEDS ORDERED: Potassium Chloride 20 MEQ, Lidocaine 1% 2 ML in 0.9 % Sodium Chloride 250 ML IVPB ONE (14:40)
[2019-07-04] MEDS ORDERED: Naloxone 0.4 MG/ML INJ IVP PRN ×2 (15:43→15:47)
[2019-07-04] MEDS ORDERED: *HR* Promethazine 25 MG/ML VIAL IVP PRN (15:47)
[2019-07-04] MEDS ORDERED: *HR* OxyCODONE/APAP 10/325 TABLET PO PRN (19:18)
[2019-07-04] MEDS ORDERED: Albuterol 2.5 MG/3 ML NEBULIZER IH PRN (19:18)
[2019-07-04] MEDS ORDERED: NON-FORMULARY MEDICATION 1 EACH EACH (Mometasone/Formoterol [Dulera 200 Mcg/5 Mcg Inhaler] IH PRN (19:18)
[2019-07-04] MEDS: Budesonide/Formoterol 160/4.5 1 PUFF INH IH SCH (21:22)
[2019-07-05 02:12] LABS: Basophils % 0.8 %; Immature Granulocytes % 0.6 % (0-4)
[2019-07-05 02:13] LABS: Basophils # 0.1 K/mcL (0.0-0.2); Eosinophils # 0.3 K/mcL (0.0-0.6); Eosinophils % 2.7 %; Hematocrit 33.5 % (37.5-50.1); Hemoglobin 9.8 g/dL (12.9-16.9); Lymphocytes % 11.2 %; Mean Corpuscular HGB Conc 29.3 g/dL (31.6-35.5); Mean Corpuscular Hemoglobin 23.8 pg (28.0-33.3); Mean Corpuscular Volume 81.3 fL (83.0-100.0); Mean Platelet Volume 9.4 fL (9.4-12.4); Monocytes % 9.5 %; Neutrophils # 7.7 K/mcL (1.6-8.9); Platelet Count 386 K/mcL (140-400); Red Blood Count 4.12 M/mcL (4.19-5.50); Red Cell Distribution Width 17.7 % (11.5-14.5); Segmented Neutrophils % 75.2 %; White Blood Count 10.2 K/mcL (4.3-11.1)
[2019-07-05 02:21] LABS: Lymphocytes # 1.1 K/mcL (0.6-4.6)
[2019-07-05 02:27] LABS: Calcium 8.8 mg/dL (8.6-10.3); Potassium 3.4 mEq/L (3.5-5.1)
[2019-07-05 02:28] LABS: Magnesium 1.9 mg/dL (1.6-2.6)
[2019-07-05 02:31] LABS: Troponin I 0.04 ng/mL (< 0.04)
[2019-07-05 04:53] LABS: BUN/Creatinine Ratio 11 (6-26); Blood Urea Nitrogen 16 mg/dL (8-23); Calcium 8.7 mg/dL (8.6-10.3); Carbon Dioxide 30 mEq/L (23-29); Chloride 99 mEq/L (98-107); Glucose 134 mg/dL (70-105); Magnesium 1.9 mg/dL (1.6-2.6); Osmolality,Calculated 289 (280-300); Phosphorous 2.6 mg/dL (2.7-4.5); Potassium 3.2 mEq/L (3.5-5.1); Sodium 138 mEq/L (136-145); eGFR For African Americans > 60 (> 60); eGFR For Non-African Americans 50 (> 60)
[2019-07-05] MEDS: Acetaminophen 325 MG TABLET PO PRN (07:13)
[2019-07-05] MEDS: Aspirin Enteric Coated 81 MG Tablet PO SCH (07:43)
[2019-07-05] MEDS: Budesonide/Formoterol 160/4.5 1 PUFF INH IH SCH ×2 (07:49→19:57)
[2019-07-05] MEDS ORDERED: *HR* Heparin 5,000 UNIT/ML VIAL IVP ONE (10:17)
[2019-07-05] MEDS ORDERED: *HR* Heparin 5,000 UNIT/ML VIAL IVP PRN ×2 (10:17)
[2019-07-05] MEDS: DilTIAZem CD (24hr) 120 MG CAP.ER.24H PO SCH (12:16)
[2019-07-05 12:21] LABS: Hematocrit 33.9 % (37.5-50.1); Hemoglobin 9.8 g/dL (12.9-16.9); Mean Corpuscular HGB Conc 28.9 g/dL (31.6-35.5); Mean Corpuscular Hemoglobin 24.1 pg (28.0-33.3); Mean Corpuscular Volume 83.3 fL (83.0-100.0); Mean Platelet Volume 8.9 fL (9.4-12.4); Platelet Count 342 K/mcL (140-400); Red Blood Count 4.07 M/mcL (4.19-5.50); White Blood Count 8.8 K/mcL (4.3-11.1)
[2019-07-05 12:31] LABS: INR 1.4
[2019-07-05 13:41] LABS: Thyroid Stimulating Hormone 7.465 mcIU/mL (0.340-5.600)
[2019-07-05] MEDS: *HR* OxyCODONE/APAP 10/325 TABLET PO PRN (17:02)
[2019-07-05] MEDS: Heparin 25,000 UNIT/250 ML D5W 25,000 UNIT/250 ML IV.SOLN IVC SCH ×2 (17:04→23:07)
[2019-07-06] MEDS: *HR* OxyCODONE/APAP 10/325 TABLET PO PRN ×2 (04:24→21:29)
[2019-07-06] MEDS ORDERED: Regadenoson 0.4 MG/5 ML SYRINGE IVP ONE (06:23)
[2019-07-06] MEDS: Budesonide/Formoterol 160/4.5 1 PUFF INH IH SCH ×2 (07:33→22:41)
[2019-07-06] MEDS ORDERED: Potassium Phosphate 44 MEQ in 0.9 % Sodium Chloride 250 ML IVPB ONE (08:13)
[2019-07-06] MEDS: DilTIAZem CD (24hr) 120 MG CAP.ER.24H PO SCH (10:24)
[2019-07-06] MEDS: Aspirin Enteric Coated 81 MG Tablet PO SCH (10:24)
[2019-07-06] MEDS: Heparin 25,000 UNIT/250 ML D5W 25,000 UNIT/250 ML IV.SOLN IVC SCH (12:17)
[2019-07-06] MEDS ORDERED: SODIUM CHLORIDE/NAHCO3/KCL/PEG 4,000 ML SOLN.RECON PO ONE (17:00)
[2019-07-06] MEDS: diazePAM 5 MG TABLET PO PRN (21:30)
[2019-07-07] MEDS: Acetaminophen 325 MG TABLET PO PRN (05:27)
[2019-07-07] MEDS: Heparin 25,000 UNIT/250 ML D5W 25,000 UNIT/250 ML IV.SOLN IVC SCH (05:33)
[2019-07-07] MEDS ORDERED: Regadenoson 0.4 MG/5 ML SYRINGE IVP ONE (06:39)
[2019-07-07] MEDS: DilTIAZem CD (24hr) 120 MG CAP.ER.24H PO SCH (10:42)
[2019-07-07] MEDS: Aspirin Enteric Coated 81 MG Tablet PO SCH (10:42)
[2019-07-07] MEDS: *HR* OxyCODONE/APAP 10/325 TABLET PO PRN ×2 (10:49→20:46)
[2019-07-07] MEDS: Budesonide/Formoterol 160/4.5 1 PUFF INH IH SCH ×2 (11:26→20:22)
[2019-07-08] MEDS: diazePAM 5 MG TABLET PO PRN ×3 (01:41→10:40)
[2019-07-08 07:34] LABS: Hemoglobin 9.8 g/dL (12.9-16.9)
[2019-07-08 07:35] LABS: Basophils # 0.1 K/mcL (0.0-0.2); Basophils % 0.8 %; Eosinophils # 0.4 K/mcL (0.0-0.6); Eosinophils % 3.4 %; Hematocrit 33.9 % (37.5-50.1); Immature Granulocytes % 0.5 % (0-4); Lymphocytes % 13.2 %; Mean Corpuscular HGB Conc 28.9 g/dL (31.6-35.5); Mean Corpuscular Hemoglobin 24.2 pg (28.0-33.3); Mean Corpuscular Volume 83.7 fL (83.0-100.0); Mean Platelet Volume 9.7 fL (9.4-12.4); Monocytes # 1.1 K/mcL (0.0-1.3); Monocytes % 10.9 %; Platelet Count 362 K/mcL (140-400); Red Blood Count 4.05 M/mcL (4.19-5.50); Red Cell Distribution Width 18.6 % (11.5-14.5); Segmented Neutrophils % 71.2 %; White Blood Count 10.2 K/mcL (4.3-11.1)
[2019-07-08 07:43] LABS: Lymphocytes # 1.4 K/mcL (0.6-4.6); Neutrophils # 7.3 K/mcL (1.6-8.9)
[2019-07-08 07:45] LABS: Calcium 8.7 mg/dL (8.6-10.3); Platelet Estimate Normal (Normal); Potassium 3.6 mEq/L (3.5-5.1); Troponin I 0.06 ng/mL (< 0.04)
[2019-07-08] MEDS ORDERED: Ringers Solution, Lactated 1,000 ML IVC SCH (08:30)
[2019-07-08] MEDS: *HR* OxyCODONE/APAP 10/325 TABLET PO PRN ×3 (10:38→21:04)
[2019-07-08] MEDS: Aspirin Enteric Coated 81 MG Tablet PO SCH (10:39)
[2019-07-08] MEDS: DilTIAZem CD (24hr) 120 MG CAP.ER.24H PO SCH (10:39)
[2019-07-08 10:57] LABS: Sodium, Urine 12.2 mEq/L
[2019-07-08] MEDS: Budesonide/Formoterol 160/4.5 1 PUFF INH IH SCH ×2 (11:12→19:40)
[2019-07-08] MEDS ORDERED: Ringers Solution, Lactated 500 ML IVC SCH (11:30)
[2019-07-08 15:35] LABS: Calcium 8.4 mg/dL (8.6-10.3); Potassium 3.3 mEq/L (3.5-5.1)
[2019-07-08 16:24] LABS: Uric Acid 12.9 mg/dL (2.3-7.6)
[2019-07-08 21:57] LABS: Bilirubin,Urine Small (Negative); Blood,Urine Negative (Negative); Clarity,Urine Clear (Clear); Color,Urine Yellow (Yellow); Glucose,Urine (UA) Normal (Normal); Ketones,Urine Negative (Negative); Leukocyte Esterase,Urine Trace (Negative); Nitrite,Urine Negative (Negative); Protein,Urine 30 mg/dL (Neg-Trace); Specific Gravity,Urine 1.021 (1.010-1.025); Urobilinogen,Urine Normal (Normal)
[2019-07-08 22:10] LABS: Bacteria,Urine Few per hpf (None-Few); Hyaline Casts,Urine Few per lpf (None-Few); Mucus,Urine Few (Few); Squamous Epithelial Cell,Urine Moderate per lpf (None-Few)
[2019-07-09 02:48] LABS: Calcium 8.6 mg/dL (8.6-10.3); Potassium 3.6 mEq/L (3.5-5.1)
[2019-07-09] MEDS: *HR* OxyCODONE/APAP 10/325 TABLET PO PRN ×2 (04:09→22:39)
[2019-07-09] MEDS: Aspirin Enteric Coated 81 MG Tablet PO SCH (07:47)
[2019-07-09] MEDS: DilTIAZem CD (24hr) 120 MG CAP.ER.24H PO SCH (07:47)
[2019-07-09] MEDS: Budesonide/Formoterol 160/4.5 1 PUFF INH IH SCH ×2 (08:11→19:56)
[2019-07-09] MEDS ORDERED: Ringers Solution, Lactated 1,000 ML IVC SCH (08:30)
[2019-07-09] MEDS: diazePAM 5 MG TABLET PO PRN (12:12)
[2019-07-09] MEDS: Ringers Solution, Lactated 1,000 ML IVC SCH (15:40)
[2019-07-10] MEDS: Ringers Solution, Lactated 1,000 ML IVC SCH ×2 (01:27→20:29)
[2019-07-10] MEDS: diazePAM 5 MG TABLET PO PRN ×2 (02:24→23:22)
[2019-07-10 05:18] LABS: Calcium 8.4 mg/dL (8.6-10.3); Potassium 3.4 mEq/L (3.5-5.1)
[2019-07-10] MEDS: Budesonide/Formoterol 160/4.5 1 PUFF INH IH SCH ×2 (07:24→19:43)
[2019-07-10] MEDS: DilTIAZem CD (24hr) 120 MG CAP.ER.24H PO SCH (08:54)
[2019-07-10] MEDS: Aspirin Enteric Coated 81 MG Tablet PO SCH (08:54)
[2019-07-10 12:11] LABS: Albumin 3.5 g/dL (3.5-5.7); Albumin/Globulin Ratio 1.1 (1.1-2.2); Bilirubin,Direct 0.1 mg/dL (0.0-0.2); Bilirubin,Indirect 0.3 mg/dL (0.0-1.2); Bilirubin,Total 0.4 mg/dL (0.3-1.0); Globulin 3.2 g/dL (2.4-3.5); Total Protein 6.7 g/dL (6.4-8.9)
[2019-07-10] MEDS: *HR* OxyCODONE/APAP 10/325 TABLET PO PRN ×2 (13:45→20:31)
[2019-07-11 05:48] LABS: Complement C3 130 mg/dL (87-200)
[2019-07-11 06:41] LABS: Calcium 8.4 mg/dL (8.6-10.3); Potassium 3.4 mEq/L (3.5-5.1)
[2019-07-11] MEDS: Budesonide/Formoterol 160/4.5 1 PUFF INH IH SCH ×2 (07:58→19:50)
[2019-07-11] MEDS: DilTIAZem CD (24hr) 120 MG CAP.ER.24H PO SCH (09:07)
[2019-07-11] MEDS: Aspirin Enteric Coated 81 MG Tablet PO SCH (09:07)
[2019-07-11] MEDS: Albumin 25% 25gram/100mL 25 GM/100 ML IV.SOLN IVC SCH ×4 (12:18→19:55)
[2019-07-11] MEDS ORDERED: Furosemide 40 MG/4 ML VIAL IVP ONE ×2 (16:00→21:15)
[2019-07-11 19:06] LABS: Calcium 8.7 mg/dL (8.6-10.3); Potassium 3.6 mEq/L (3.5-5.1)
[2019-07-11] MEDS ORDERED: Albumin 25% 25gram/100mL 25 GM/100 ML IV.SOLN ONE (19:55)
[2019-07-11] MEDS ORDERED: Albumin 25% 25gram/100mL 25 GM/100 ML IV.SOLN IVC SCH (20:00)
[2019-07-12] MEDS: *HR* OxyCODONE/APAP 10/325 TABLET PO PRN ×3 (03:09→23:00)
[2019-07-12 05:59] LABS: Hemoglobin 8.9 g/dL (12.9-16.9); Mean Corpuscular HGB Conc 29.7 g/dL (31.6-35.5); Mean Corpuscular Hemoglobin 23.8 pg (28.0-33.3); Mean Corpuscular Volume 80.2 fL (83.0-100.0); Mean Platelet Volume 9.4 fL (9.4-12.4); Platelet Count 394 K/mcL (140-400); Red Blood Count 3.74 M/mcL (4.19-5.50); Red Cell Distribution Width 18.5 % (11.5-14.5); White Blood Count 9.1 K/mcL (4.3-11.1)
[2019-07-12 06:29] LABS: Albumin 4.1 g/dL (3.5-5.7); Albumin/Globulin Ratio 1.4 (1.1-2.2); Bilirubin,Total 0.7 mg/dL (0.3-1.0); Calcium 8.8 mg/dL (8.6-10.3); Globulin 2.9 g/dL (2.4-3.5)
[2019-07-12] MEDS: Budesonide/Formoterol 160/4.5 1 PUFF INH IH SCH ×2 (07:29→19:31)
[2019-07-12 09:01] LABS: Hepatitis B Surface Antigen Nonreactive (Nonreactive)
[2019-07-12] MEDS: DilTIAZem CD (24hr) 120 MG CAP.ER.24H PO SCH (09:23)
[2019-07-12] MEDS: Aspirin Enteric Coated 81 MG Tablet PO SCH (09:23)
[2019-07-12 09:29] LABS: Hepatitis C Virus Antibody Nonreactive (Nonreactive)
[2019-07-12 09:30] LABS: Hepatitis B Core IgM Nonreactive (Nonreactive)
[2019-07-12 09:32] LABS: Hepatitis A Antibody IgM Nonreactive (Nonreactive)
[2019-07-12] MEDS ORDERED: Albumin 25% 25gram/100mL 25 GM/100 ML IV.SOLN IVPB ONE (12:15)
[2019-07-12] MEDS ORDERED: Furosemide 40 MG/4 ML VIAL IVP ONE (14:00)
[2019-07-13 06:26] LABS: Hematocrit 28.8 % (37.5-50.1); Hemoglobin 8.6 g/dL (12.9-16.9)
[2019-07-13] MEDS: diazePAM 5 MG TABLET PO PRN (06:35)
[2019-07-13 06:44] LABS: Calcium 8.9 mg/dL (8.6-10.3); Potassium 3.2 mEq/L (3.5-5.1)
[2019-07-13] MEDS: Budesonide/Formoterol 160/4.5 1 PUFF INH IH SCH (07:43)
[2019-07-13 09:43] LABS: ANA IgG by ELISA NONE DETECTED (None Detected)
[2019-07-13] MEDS: Aspirin Enteric Coated 81 MG Tablet PO SCH (09:49)
[2019-07-13] MEDS: DilTIAZem CD (24hr) 120 MG CAP.ER.24H PO SCH (09:49)
[2019-07-13] MEDS: *HR* OxyCODONE/APAP 10/325 TABLET PO PRN (09:52)
[2019-07-13 15:27] VITALS: BP 175/105
== END 2019-07-13 16:04 | disposition home health service (06) | DRG 201 ==
LOC: EMEROOARM 12:14 → 2ANU 12:14 → SUATTDRO 16:09 → 2ANU 16:44 → 2NENU 07-05 16:14 → SUATTDRO 07-08 15:02
PROVIDERS: ADMIT Internal Medicine; ATTEND Family Medicine

== ENCOUNTER 2020-04-25 13:09 | Inpatient (IN) ==
[~2020-04-25 13:09] MED LIST: *HR* Etomidate 20 MG/10 ML AMPUL IVP ONE; *HR* Rocuronium Bromide 50 MG/5 ML VIAL IVP ONE
[2020-04-25 13:49] LABS: INR 1.2
[2020-04-25 13:57] LABS: Basophils % 0.2 %; Hematocrit 31.6 % (37.5-50.1); Hemoglobin 9.2 g/dL (12.9-16.9); Immature Granulocytes % 0.2 % (0-4); Lymphocytes # 0.4 K/mcL (0.6-4.6); Lymphocytes % 9.2 %; Mean Corpuscular HGB Conc 29.1 g/dL (31.6-35.5); Mean Corpuscular Hemoglobin 28.4 pg (28.0-33.3); Mean Corpuscular Volume 97.5 fL (83.0-100.0); Mean Platelet Volume 9.6 fL (9.4-12.4); Monocytes # 0.1 K/mcL (0.0-1.3); Monocytes % 2.8 %; Neutrophils # 3.8 K/mcL (1.6-8.9); Platelet Count 229 K/mcL (140-400); Red Blood Count 3.24 M/mcL (4.19-5.50); Red Cell Distribution Width 17.5 % (11.5-14.5); Segmented Neutrophils % 87.6 %; White Blood Count 4.4 K/mcL (4.3-11.1)
[2020-04-25 14:05] LABS: BUN/Creatinine Ratio 14 (6-26); Blood Urea Nitrogen 81 mg/dL (8-23); Calcium 8.4 mg/dL (8.6-10.3); Carbon Dioxide 29 mEq/L (23-29); Chloride 100 mEq/L (98-107); Glucose 113 mg/dL (70-105); Osmolality,Calculated 311 (280-300); Potassium 4.9 mEq/L (3.5-5.1); Sodium 138 mEq/L (136-145); Troponin I < 0.03 ng/mL (< 0.04); eGFR For African Americans 12 (> 60); eGFR For Non-African Americans 10 (> 60)
[2020-04-25] MEDS ORDERED: Azithromycin 500 MG in 0.9 % Sodium Chloride 250 ML IVPB ONE (14:22)
[2020-04-25] MEDS ORDERED: cefTRIAXone 1,000 MG in Water for inj. (sterile) 10 ML IVP ONE ×2 (14:22→15:08)
[2020-04-25 14:36] LABS: Bilirubin,Urine Negative (Negative); Blood,Urine Moderate (Negative); Color,Urine Yellow (Yellow); Glucose,Urine (UA) Normal (Normal); Ketones,Urine Negative (Negative); Leukocyte Esterase,Urine Negative (Negative); Nitrite,Urine Negative (Negative); Protein,Urine Trace mg/dL (Neg-Trace); Specific Gravity,Urine 1.017 (1.010-1.025); Urobilinogen,Urine Normal (Normal)
[2020-04-25 14:38] LABS: Bacteria,Urine None Seen per hpf (None-Few); Hyaline Casts,Urine None Seen per lpf (None-Few); RBC,Urine 15-30 per hpf (0-3); Squamous Epithelial Cell,Urine Many per lpf (None-Few); WBC,Urine 0-3 per hpf (0-3)
[2020-04-25 14:41] LABS: Clarity,Urine Slightly Cloudy (Clear)
[2020-04-25 14:41] LABS: ABG Base Excess 0 mEq/L (-2 to 3); ABG HCO3 30 mEq/L (21-27); ABG Oxygen Saturation 99 % (95-98); ABG PCO2 82 mmHg (35-45); ABG PH 7.17 pH Units (7.32-7.45); ABG PO2 165 mmHg (85-104); ABG TCO2 33 mEq/L (20-26)
[2020-04-25 14:51] LABS: Alanine Aminotransferase 8 Units/L (7-52); Albumin 3.2 g/dL (3.5-5.7); Albumin/Globulin Ratio 0.9 (1.1-2.2); Alkaline Phosphatase 66 Units/L (34-104); Aspartate Amino Transferase 9 Units/L (13-39); Bilirubin,Direct 0.1 mg/dL (0.0-0.2); Bilirubin,Indirect 0.2 mg/dL (0.0-1.0); Bilirubin,Total 0.3 mg/dL (0.3-1.0); Globulin 3.6 g/dL (2.4-3.5); Total Protein 6.8 g/dL (6.4-8.9)
[2020-04-25] MEDS ORDERED: Furosemide 40 MG/4 ML VIAL IVP ONE (14:52)
[2020-04-25] MEDS ORDERED: Albumin 25% 25gram/100mL 25 GM/100 ML IV.SOLN IVPB ONE (15:05)
[2020-04-25] MEDS ORDERED: Ipratropium/Albuterol Neb 3 ML IH ONE (15:12)
[2020-04-25 16:10] LABS: ABG Base Excess 0 mEq/L (-2 to 3); ABG HCO3 29 mEq/L (21-27); ABG Oxygen Saturation 94 % (95-98); ABG PCO2 75 mmHg (35-45); ABG PO2 90 mmHg (85-104); ABG TCO2 31 mEq/L (20-26)
[2020-04-25] MEDS ORDERED: Artificial Tears SOLN 15 ML BOTTLE BOTH EYES PRN (16:34)
[2020-04-25] MEDS ORDERED: Acetaminophen 325 MG TABLET PO PRN (16:34)
[2020-04-25] MEDS ORDERED: Naloxone 0.4 MG/ML INJ IVP PRN (16:34)
[2020-04-25] MEDS: Dexmedetomidine HCl 400 MCG/100 ML MLS IVC SCH ×2 (16:37→21:45)
[2020-04-25] MEDS ORDERED: Norepinephrine 4 MG/254 ML IV.SOLN IVC SCH (16:45)
[2020-04-25] MEDS ORDERED: Dextrose Gel 15 GM/37.5 ML TUBE PO PRN ×2 (16:48)
[2020-04-25] MEDS ORDERED: *HR* Dextrose 50 % in Water (Syg) 50 ML SYRINGE IVP PRN (16:48)
[2020-04-25] MEDS ORDERED: D5% in Water 1,000 ML IVC PRN (16:48)
[2020-04-25] MEDS ORDERED: *HR* Midazolam HCl 5 MG/5 ML VIAL IVP ONE ×2 (17:00→17:04)
[2020-04-25] MEDS: Midazolam HCl 50 MG/100 ML IV.SOLN IVC SCH ×2 (17:35→19:00)
[2020-04-25 17:54] LABS: Troponin I < 0.03 ng/mL (< 0.04)
[2020-04-25 18:15] LABS: Thyroid Stimulating Hormone 23.492 mcIU/mL (0.340-5.600)
[2020-04-25] MEDS: *HR* Heparin 5,000 UNIT/ML VIAL SQ SCH (19:09)
[2020-04-25] MEDS: Doxycycline 100 MG in 0.9 % Sodium Chloride Mini Bag 100 ML IVPB SCH (19:09)
[2020-04-25 19:24] LABS: Estimated Average Glucose 103 mg/dl
[2020-04-25] MEDS: Chlorhexidine Rinse 15 ML MOUTHWASH MM SCH (20:26)
[2020-04-25] MEDS: Piperacillin/Tazobactam 3.375 GM in 0.9 % Sodium Chloride Mini Bag 100 ML IVPB SCH (20:28)
[2020-04-25] MEDS: Insulin LISPRO 300 UNITS/3 ML VIAL SQ SCH ×2 (20:30→23:44)
[2020-04-25] MEDS: Artificial Tears SOLN 15 ML BOTTLE BOTH EYES SCH (20:33)
[2020-04-25] MEDS ORDERED: Perflutren Lipid Microsphere 1.3 ML in 0.9 % Sodium Chloride 8.7 ML IVP ONE (20:39)
[2020-04-26] MEDS: Artificial Tears SOLN 15 ML BOTTLE BOTH EYES SCH ×7 (00:01→23:39)
[2020-04-26 00:43] LABS: Basophils % 0.4 %; Eosinophils % 0.6 %; Hematocrit 28.2 % (37.5-50.1); Hemoglobin 8.5 g/dL (12.9-16.9); Immature Granulocytes % 0.2 % (0-4); Lymphocytes # 0.9 K/mcL (0.6-4.6); Lymphocytes % 19.4 %; Mean Corpuscular HGB Conc 30.1 g/dL (31.6-35.5); Mean Corpuscular Hemoglobin 27.8 pg (28.0-33.3); Mean Corpuscular Volume 92.2 fL (83.0-100.0); Mean Platelet Volume 9.3 fL (9.4-12.4); Monocytes # 0.6 K/mcL (0.0-1.3); Monocytes % 11.6 %; Neutrophils # 3.2 K/mcL (1.6-8.9); Platelet Count 234 K/mcL (140-400); Red Blood Count 3.06 M/mcL (4.19-5.50); Red Cell Distribution Width 17.2 % (11.5-14.5); Segmented Neutrophils % 67.8 %; White Blood Count 4.8 K/mcL (4.3-11.1)
[2020-04-26 01:03] LABS: Albumin 2.9 g/dL (3.5-5.7); Albumin/Globulin Ratio 0.9 (1.1-2.2); Bilirubin,Direct 0.1 mg/dL (0.0-0.2); Bilirubin,Indirect 0.3 mg/dL (0.0-1.0); Bilirubin,Total 0.4 mg/dL (0.3-1.0); Calcium 8.4 mg/dL (8.6-10.3); Globulin 3.2 g/dL (2.4-3.5); Magnesium 2.1 mg/dL (1.6-2.6); Phosphorous 4.7 mg/dL (2.7-4.5); Potassium 4.2 mEq/L (3.5-5.1); Total Protein 6.1 g/dL (6.4-8.9)
[2020-04-26] MEDS: Insulin LISPRO 300 UNITS/3 ML VIAL SQ SCH ×5 (03:44→23:39)
[2020-04-26 04:08] LABS: ABG Base Excess 3 mEq/L (-2 to 3); ABG HCO3 25 mEq/L (21-27); ABG Oxygen Saturation 100 % (95-98); ABG PCO2 30 mmHg (35-45); ABG PH 7.54 pH Units (7.32-7.45); ABG PO2 157 mmHg (85-104); ABG TCO2 26 mEq/L (20-26); Blood Gas Modality AF; Blood Gas VT 500 cc
[2020-04-26] MEDS: Midazolam HCl 50 MG/100 ML IV.SOLN IVC SCH ×2 (04:10→16:40)
[2020-04-26] MEDS: *HR* Heparin 5,000 UNIT/ML VIAL SQ SCH ×2 (05:12→14:00)
[2020-04-26] MEDS: Doxycycline 100 MG in 0.9 % Sodium Chloride Mini Bag 100 ML IVPB SCH (05:13)
[2020-04-26] MEDS: Piperacillin/Tazobactam 3.375 GM in 0.9 % Sodium Chloride Mini Bag 100 ML IVPB SCH ×2 (06:17→16:32)
[2020-04-26] MEDS: Dexmedetomidine HCl 400 MCG/100 ML MLS IVC SCH ×4 (06:17→23:41)
[2020-04-26] MEDS: Hydrocortisone Sodium Succ 100 MG/2 ML VIAL IVP SCH ×3 (08:10→23:40)
[2020-04-26] MEDS: Pantoprazole 40 MG VIAL IVP SCH (08:10)
[2020-04-26] MEDS: Chlorhexidine Rinse 15 ML MOUTHWASH MM SCH ×2 (08:10→19:52)
[2020-04-26] MEDS ORDERED: Levothyroxine Sodium 100 MCG VIAL IVP SCH (09:00)
[2020-04-26] MEDS ORDERED: 0.9 % Sodium Chloride 250 ML IVC PRN (09:21)
[2020-04-26] MEDS ORDERED: 0.9 % Sodium Chloride 1,000 ML PRIME SCH (09:30)
[2020-04-26] MEDS ORDERED: Heparin 1,000 UNITS/500 mL 500 ML ONE (09:53)
[2020-04-26] MEDS ORDERED: Lidocaine/EPI 1:100k 1% 50 ML VIAL ONE (09:53)
[2020-04-26] MEDS ORDERED: *HR* Heparin 5,000 UNIT/ML VIAL ONE (10:22)
[2020-04-26 13:23] LABS: Appearance of Pleural Fl Clear (Clear)
[2020-04-26 13:31] LABS: RBC,Pleural Fluid < 2000 RBC/mcL
[2020-04-26 13:33] LABS: Amylase,Pleural Fluid 15 Units/L (No Ref Range); Glucose,Pleural Fluid 100 mg/dL (No Ref Range); LDH,Pleural Fluid 55 Units/L (No Ref Range); Total Protein,Pleural Fluid < 3.0 g/dL
[2020-04-26] MEDS ORDERED: *HR* Heparin 10,000 UNIT/10 ML VIAL IV PRN (13:33)
[2020-04-26 13:44] LABS: Hepatitis B Surface Antibody < 3.10 mIU/mL
[2020-04-26 13:54] LABS: Hepatitis B Surface Antigen Nonreactive (Nonreactive)
[2020-04-26] MEDS ORDERED: *HR* Heparin 5,000 UNIT/ML VIAL IVP PRN ×2 (14:21)
[2020-04-26] MEDS ORDERED: *HR* Heparin 5,000 UNIT/ML VIAL IVP ONE (14:21)
[2020-04-26 14:23] LABS: Hepatitis B Core IgM Nonreactive (Nonreactive)
[2020-04-26 14:24] LABS: ABG Base Excess 2 mEq/L (-2 to 3); ABG HCO3 26 mEq/L (21-27); ABG Oxygen Saturation 98 % (95-98); ABG PCO2 35 mmHg (35-45); ABG PH 7.47 pH Units (7.32-7.45); ABG PO2 94 mmHg (85-104); ABG TCO2 27 mEq/L (20-26); Blood Gas Modality ASSIST CONTROL; Blood Gas VT 500 cc
[2020-04-26 15:22] LABS: Basophils,Pleural Fluid 0 %; Eosinophils,Pleural Fluid 0 %
[2020-04-26 15:24] LABS: INR 1.4; Prothrombin Time 15.4 Seconds (9.4-12.1)
[2020-04-26 15:26] LABS: Heparin anti-factor XA UFH < 0.04 IU/mL (0.30-0.70)
[2020-04-26 15:39] LABS: Hematocrit 27.4 % (37.5-50.1); Hemoglobin 8.5 g/dL (12.9-16.9); Mean Corpuscular Volume 90.1 fL (83.0-100.0); Mean Platelet Volume 9.5 fL (9.4-12.4); Platelet Count 261 K/mcL (140-400); Red Blood Count 3.04 M/mcL (4.19-5.50); Red Cell Distribution Width 17.6 % (11.5-14.5)
[2020-04-26] MEDS: Heparin 25,000 UNIT/250 ML D5W 25,000 UNIT/250 ML IV.SOLN IVC SCH (16:41)
[2020-04-27] MEDS: Artificial Tears SOLN 15 ML BOTTLE BOTH EYES SCH ×5 (03:03→20:24)
[2020-04-27 04:13] LABS: ABG Base Excess 2 mEq/L (-2 to 3); ABG HCO3 26 mEq/L (21-27); ABG Oxygen Saturation 92 % (95-98); ABG PCO2 41 mmHg (35-45); ABG PH 7.42 pH Units (7.32-7.45); ABG PO2 64 mmHg (85-104); ABG TCO2 28 mEq/L (20-26); Blood Gas VT 450 cc
[2020-04-27] MEDS: Piperacillin/Tazobactam 3.375 GM in 0.9 % Sodium Chloride Mini Bag 100 ML IVPB SCH (04:56)
[2020-04-27 05:13] LABS: Hematocrit 27.6 % (37.5-50.1); Hemoglobin 8.4 g/dL (12.9-16.9); Immature Granulocytes % 0.2 % (0-4); Lymphocytes # 0.5 K/mcL (0.6-4.6); Lymphocytes % 9.5 %; Mean Corpuscular HGB Conc 30.4 g/dL (31.6-35.5); Mean Corpuscular Hemoglobin 27.5 pg (28.0-33.3); Mean Corpuscular Volume 90.5 fL (83.0-100.0); Mean Platelet Volume 9.1 fL (9.4-12.4); Monocytes # 0.2 K/mcL (0.0-1.3); Monocytes % 4.2 %; Neutrophils # 4.9 K/mcL (1.6-8.9); Platelet Count 227 K/mcL (140-400); Red Blood Count 3.05 M/mcL (4.19-5.50); Red Cell Distribution Width 17.4 % (11.5-14.5); Segmented Neutrophils % 86.1 %; White Blood Count 5.7 K/mcL (4.3-11.1)
[2020-04-27] MEDS: Midazolam HCl 50 MG/100 ML IV.SOLN IVC SCH ×2 (05:13→16:54)
[2020-04-27 05:31] LABS: Albumin 2.7 g/dL (3.5-5.7); Bilirubin,Total 0.3 mg/dL (0.3-1.0); Globulin 2.7 g/dL (2.4-3.5); Potassium 4.1 mEq/L (3.5-5.1); Total Protein 5.4 g/dL (6.4-8.9)
[2020-04-27] MEDS: Heparin 25,000 UNIT/250 ML D5W 25,000 UNIT/250 ML IV.SOLN IVC SCH (05:35)
[2020-04-27] MEDS: Insulin LISPRO 300 UNITS/3 ML VIAL SQ SCH ×3 (05:41→18:13)
[2020-04-27] MEDS ORDERED: 0.9 % Sodium Chloride 250 ML IVC PRN (07:12)
[2020-04-27] MEDS: Chlorhexidine Rinse 15 ML MOUTHWASH MM SCH ×2 (08:14→20:24)
[2020-04-27] MEDS: Levothyroxine Sodium 100 MCG VIAL IVP SCH (08:14)
[2020-04-27] MEDS: Pantoprazole 40 MG VIAL IVP SCH (08:14)
[2020-04-27] MEDS: Hydrocortisone Sodium Succ 100 MG/2 ML VIAL IVP SCH ×2 (08:14→17:46)
[2020-04-27] MEDS: Dexmedetomidine HCl 400 MCG/100 ML MLS IVC SCH ×3 (10:34→19:44)
[2020-04-28] MEDS: Insulin LISPRO 300 UNITS/3 ML VIAL SQ SCH ×4 (01:04→22:05)
[2020-04-28] MEDS: Artificial Tears SOLN 15 ML BOTTLE BOTH EYES SCH ×6 (01:04→19:57)
[2020-04-28] MEDS: Heparin 25,000 UNIT/250 ML D5W 25,000 UNIT/250 ML IV.SOLN IVC SCH ×4 (03:13→22:29)
[2020-04-28 04:22] LABS: ABG Base Excess 3 mEq/L (-2 to 3); ABG HCO3 28 mEq/L (21-27); ABG Oxygen Saturation 98 % (95-98); ABG PCO2 42 mmHg (35-45); ABG PH 7.43 pH Units (7.32-7.45); ABG PO2 103 mmHg (85-104); ABG TCO2 29 mEq/L (20-26); Blood Gas Modality ASSIST CONTROL; Blood Gas VT 450 cc
[2020-04-28 04:43] LABS: Hematocrit 27.9 % (37.5-50.1); Hemoglobin 8.6 g/dL (12.9-16.9); Mean Corpuscular HGB Conc 30.8 g/dL (31.6-35.5); Mean Corpuscular Hemoglobin 27.9 pg (28.0-33.3); Mean Corpuscular Volume 90.6 fL (83.0-100.0); Mean Platelet Volume 9.8 fL (9.4-12.4); Platelet Count 257 K/mcL (140-400); Red Blood Count 3.08 M/mcL (4.19-5.50); Red Cell Distribution Width 17.7 % (11.5-14.5); White Blood Count 6.3 K/mcL (4.3-11.1)
[2020-04-28 05:00] LABS: Albumin 2.6 g/dL (3.5-5.7); Albumin/Globulin Ratio 0.9 (1.1-2.2); Bilirubin,Total 0.3 mg/dL (0.3-1.0); Magnesium 1.9 mg/dL (1.6-2.6); Phosphorous 3.8 mg/dL (2.7-4.5); Potassium 3.6 mEq/L (3.5-5.1); Total Protein 5.6 g/dL (6.4-8.9)
[2020-04-28] MEDS: Midazolam HCl 50 MG/100 ML IV.SOLN IVC SCH (07:00)
[2020-04-28] MEDS: Dexmedetomidine HCl 400 MCG/100 ML MLS IVC SCH ×4 (07:00→23:30)
[2020-04-28] MEDS: Levothyroxine Sodium 100 MCG VIAL IVP SCH (08:25)
[2020-04-28] MEDS: Chlorhexidine Rinse 15 ML MOUTHWASH MM SCH ×2 (08:25→19:55)
[2020-04-28] MEDS: Hydrocortisone Sodium Succ 100 MG/2 ML VIAL IVP SCH (08:25)
[2020-04-28] MEDS: Pantoprazole 40 MG VIAL IVP SCH (08:25)
[2020-04-28] MEDS ORDERED: Furosemide 40 MG/4 ML VIAL IVP ONE (08:53)
[2020-04-29] MEDS: Artificial Tears SOLN 15 ML BOTTLE BOTH EYES SCH ×5 (02:37→15:31)
[2020-04-29] MEDS: Insulin LISPRO 300 UNITS/3 ML VIAL SQ SCH ×3 (02:37→11:16)
[2020-04-29] MEDS: Dexmedetomidine HCl 400 MCG/100 ML MLS IVC SCH (05:31)
[2020-04-29 05:54] LABS: Hematocrit 27.6 % (37.5-50.1); Hemoglobin 8.5 g/dL (12.9-16.9); Mean Corpuscular HGB Conc 30.8 g/dL (31.6-35.5); Mean Corpuscular Hemoglobin 27.9 pg (28.0-33.3); Mean Corpuscular Volume 90.5 fL (83.0-100.0); Mean Platelet Volume 9.3 fL (9.4-12.4); Platelet Count 222 K/mcL (140-400); Red Blood Count 3.05 M/mcL (4.19-5.50); Red Cell Distribution Width 17.4 % (11.5-14.5); White Blood Count 6.6 K/mcL (4.3-11.1)
[2020-04-29 06:16] LABS: Albumin 2.6 g/dL (3.5-5.7); Albumin/Globulin Ratio 0.9 (1.1-2.2); Bilirubin,Total 0.4 mg/dL (0.3-1.0); Calcium 7.9 mg/dL (8.6-10.3); Globulin 2.9 g/dL (2.4-3.5); Magnesium 1.9 mg/dL (1.6-2.6); Phosphorous 3.7 mg/dL (2.7-4.5); Potassium 3.6 mEq/L (3.5-5.1); Total Protein 5.5 g/dL (6.4-8.9)
[2020-04-29] MEDS ORDERED: Albumin 25% 25gram/100mL 25 GM/100 ML IV.SOLN IVPB PRN ×2 (07:39→19:51)
[2020-04-29] MEDS ORDERED: 0.9 % Sodium Chloride 250 ML IVC PRN ×2 (07:39→19:51)
[2020-04-29] MEDS: Levothyroxine Sodium 100 MCG VIAL IVP SCH (07:54)
[2020-04-29] MEDS: Pantoprazole 40 MG VIAL IVP SCH (07:54)
[2020-04-29] MEDS: Hydrocortisone Sodium Succ 100 MG/2 ML VIAL IVP SCH (07:54)
[2020-04-29] MEDS: Chlorhexidine Rinse 15 ML MOUTHWASH MM SCH (07:54)
[2020-04-29] MEDS ORDERED: 0.9 % Sodium Chloride 2,000 ML ONE (08:20)
[2020-04-29] MEDS ORDERED: Acetaminophen IV 500 MG/50 ML INFUS..BTL IVPB ONE (10:24)
[2020-04-29] MEDS: Heparin 25,000 UNIT/250 ML D5W 25,000 UNIT/250 ML IV.SOLN IVC SCH ×2 (14:43→22:28)
[2020-04-29] MEDS ORDERED: Dextrose Gel 15 GM/37.5 ML TUBE PO PRN ×2 (17:21)
[2020-04-29] MEDS ORDERED: *HR* Dextrose 50 % in Water (Syg) 50 ML SYRINGE IVP PRN (17:21)
[2020-04-29] MEDS ORDERED: D5% in Water 1,000 ML IVC PRN (17:21)
[2020-04-29] MEDS ORDERED: Nystatin POWDER 30 GM BOTTLE TP PRN (19:51)
[2020-04-29] MEDS ORDERED: Eucerin Cream 57 GM TUBE TP PRN (19:51)
[2020-04-29] MEDS ORDERED: *HR* Heparin 5,000 UNIT/ML VIAL IVP PRN ×2 (19:51)
[2020-04-29] MEDS ORDERED: Naloxone 0.4 MG/ML INJ IVP PRN (19:51)
[2020-04-29] MEDS: Acetaminophen 325 MG TABLET PO PRN (23:13)
[2020-04-30 05:52] LABS: Basophils % 0.2 %; Eosinophils # 0.2 K/mcL (0.0-0.6); Eosinophils % 2.6 %; Hematocrit 28.1 % (37.5-50.1); Hemoglobin 8.8 g/dL (12.9-16.9); Immature Granulocytes % 0.5 % (0-4); Lymphocytes # 1.9 K/mcL (0.6-4.6); Lymphocytes % 22.3 %; Mean Corpuscular HGB Conc 31.3 g/dL (31.6-35.5); Mean Corpuscular Hemoglobin 28.1 pg (28.0-33.3); Mean Corpuscular Volume 89.8 fL (83.0-100.0); Mean Platelet Volume 9.4 fL (9.4-12.4); Monocytes % 12.2 %; Neutrophils # 5.2 K/mcL (1.6-8.9); Platelet Count 242 K/mcL (140-400); Red Blood Count 3.13 M/mcL (4.19-5.50); Red Cell Distribution Width 17.6 % (11.5-14.5); Segmented Neutrophils % 62.2 %; White Blood Count 8.4 K/mcL (4.3-11.1)
[2020-04-30 06:10] LABS: Albumin 2.7 g/dL (3.5-5.7); Albumin/Globulin Ratio 0.9 (1.1-2.2); Bilirubin,Total 0.5 mg/dL (0.3-1.0); Magnesium 1.7 mg/dL (1.6-2.6); Phosphorous 2.7 mg/dL (2.7-4.5); Potassium 3.4 mEq/L (3.5-5.1); Total Protein 5.7 g/dL (6.4-8.9)
[2020-04-30] MEDS ORDERED: Insulin LISPRO 300 UNITS/3 ML VIAL SQ SCH (07:30)
[2020-04-30] MEDS ORDERED: Hydrocortisone Sodium Succ 100 MG/2 ML VIAL IVP SCH (09:00)
[2020-04-30] MEDS: Insulin LISPRO 300 UNITS/3 ML VIAL SQ SCH ×3 (09:55→18:05)
[2020-04-30] MEDS: Acetaminophen 325 MG TABLET PO PRN (14:21)
[2020-04-30] MEDS: Heparin 25,000 UNIT/250 ML D5W 25,000 UNIT/250 ML IV.SOLN IVC SCH (18:01)
[2020-04-30] MEDS: Hydrocortisone 10 MG TABLET PO SCH (18:06)
[2020-05-01 01:29] LABS: Basophils % 0.1 %; Eosinophils % 0.5 %; Hemoglobin 8.9 g/dL (12.9-16.9); Immature Granulocytes % 0.3 % (0-4); Lymphocytes # 1.5 K/mcL (0.6-4.6); Lymphocytes % 16.8 %; Mean Corpuscular HGB Conc 30.7 g/dL (31.6-35.5); Mean Corpuscular Hemoglobin 27.9 pg (28.0-33.3); Mean Corpuscular Volume 90.9 fL (83.0-100.0); Mean Platelet Volume 9.8 fL (9.4-12.4); Monocytes # 0.9 K/mcL (0.0-1.3); Monocytes % 10.5 %; Neutrophils # 6.3 K/mcL (1.6-8.9); Platelet Count 237 K/mcL (140-400); Red Blood Count 3.19 M/mcL (4.19-5.50); Red Cell Distribution Width 17.6 % (11.5-14.5); Segmented Neutrophils % 71.8 %; White Blood Count 8.7 K/mcL (4.3-11.1)
[2020-05-01 01:50] LABS: Calcium 8.1 mg/dL (8.6-10.3); Magnesium 1.8 mg/dL (1.6-2.6); Phosphorous 3.2 mg/dL (2.7-4.5); Potassium 3.8 mEq/L (3.5-5.1)
[2020-05-01] MEDS: Insulin LISPRO 300 UNITS/3 ML VIAL SQ SCH ×3 (07:40→18:05)
[2020-05-01] MEDS: Hydrocortisone 10 MG TABLET PO SCH ×2 (08:17→18:09)
[2020-05-01] MEDS: Furosemide 40 MG/4 ML VIAL IVP SCH ×2 (11:47→20:42)
[2020-05-01] MEDS: Heparin 25,000 UNIT/250 ML D5W 25,000 UNIT/250 ML IV.SOLN IVC SCH ×2 (14:01)
[2020-05-01] MEDS: Apixaban 5 MG TABLET PO SCH (20:43)
[2020-05-02 03:05] LABS: Basophils % 0.1 %; Eosinophils # 0.2 K/mcL (0.0-0.6); Hematocrit 28.6 % (37.5-50.1); Hemoglobin 8.7 g/dL (12.9-16.9); Immature Granulocytes % 0.3 % (0-4); Lymphocytes # 1.1 K/mcL (0.6-4.6); Mean Corpuscular HGB Conc 30.4 g/dL (31.6-35.5); Mean Corpuscular Hemoglobin 27.4 pg (28.0-33.3); Mean Corpuscular Volume 90.2 fL (83.0-100.0); Mean Platelet Volume 9.7 fL (9.4-12.4); Monocytes # 0.9 K/mcL (0.0-1.3); Monocytes % 8.7 %; Neutrophils # 8.3 K/mcL (1.6-8.9); Platelet Count 260 K/mcL (140-400); Red Blood Count 3.17 M/mcL (4.19-5.50); Red Cell Distribution Width 17.3 % (11.5-14.5); Segmented Neutrophils % 78.9 %; White Blood Count 10.6 K/mcL (4.3-11.1)
[2020-05-02 03:24] LABS: Albumin 2.7 g/dL (3.5-5.7); Albumin/Globulin Ratio 0.9 (1.1-2.2); Bilirubin,Total 0.5 mg/dL (0.3-1.0); Calcium 8.1 mg/dL (8.6-10.3); Globulin 3.1 g/dL (2.4-3.5); Magnesium 1.9 mg/dL (1.6-2.6); Phosphorous 3.6 mg/dL (2.7-4.5); Potassium 3.6 mEq/L (3.5-5.1); Total Protein 5.8 g/dL (6.4-8.9)
[2020-05-02 03:37] LABS: Thyroid Stimulating Hormone 16.175 mcIU/mL (0.340-5.600)
[2020-05-02] MEDS ORDERED: *HR* OxyCODONE/APAP 7.5/325 TABLET PO ONE (06:54)
[2020-05-02] MEDS: Hydrocortisone 10 MG TABLET PO SCH (08:33)
[2020-05-02] MEDS: Apixaban 5 MG TABLET PO SCH (08:34)
[2020-05-02] MEDS: Furosemide 40 MG/4 ML VIAL IVP SCH ×2 (08:34→21:02)
[2020-05-02] MEDS: Insulin LISPRO 300 UNITS/3 ML VIAL SQ SCH ×3 (08:34→17:08)
[2020-05-02] MEDS: Artificial Tears SOLN 15 ML BOTTLE BOTH EYES SCH ×4 (10:24→21:09)
[2020-05-02] MEDS: Nicotine 21 MG PATCH.TD24 TD SCH (21:02)
[2020-05-02] MEDS: Acetaminophen 325 MG TABLET PO PRN (21:59)
[2020-05-03 05:15] LABS: Basophils % 0.3 %; Eosinophils # 0.5 K/mcL (0.0-0.6); Eosinophils % 5.2 %; Hematocrit 28.2 % (37.5-50.1); Hemoglobin 8.7 g/dL (12.9-16.9); Immature Granulocytes % 0.4 % (0-4); Lymphocytes # 1.1 K/mcL (0.6-4.6); Lymphocytes % 10.8 %; Mean Corpuscular HGB Conc 30.9 g/dL (31.6-35.5); Mean Corpuscular Hemoglobin 27.7 pg (28.0-33.3); Mean Corpuscular Volume 89.8 fL (83.0-100.0); Mean Platelet Volume 9.4 fL (9.4-12.4); Monocytes # 0.9 K/mcL (0.0-1.3); Monocytes % 9.3 %; Neutrophils # 7.4 K/mcL (1.6-8.9); Platelet Count 302 K/mcL (140-400); Red Blood Count 3.14 M/mcL (4.19-5.50); Red Cell Distribution Width 17.7 % (11.5-14.5)
[2020-05-03 05:30] LABS: INR 1.5; Prothrombin Time 16.9 Seconds (9.4-12.1)
[2020-05-03 05:37] LABS: Albumin 2.7 g/dL (3.5-5.7); Albumin/Globulin Ratio 0.9 (1.1-2.2); Bilirubin,Total 0.5 mg/dL (0.3-1.0); Calcium 8.4 mg/dL (8.6-10.3); Globulin 3.1 g/dL (2.4-3.5); Potassium 3.3 mEq/L (3.5-5.1); Total Protein 5.8 g/dL (6.4-8.9)
[2020-05-03] MEDS ORDERED: *HR* LORazepam 2 MG/ML VIAL IM STA (08:55)
[2020-05-03] MEDS: Hydrocortisone 10 MG TABLET PO SCH (09:20)
[2020-05-03] MEDS: Insulin LISPRO 300 UNITS/3 ML VIAL SQ SCH ×3 (09:20→17:42)
[2020-05-03] MEDS: Artificial Tears SOLN 15 ML BOTTLE BOTH EYES SCH ×4 (09:20→20:44)
[2020-05-03] MEDS: Furosemide 40 MG/4 ML VIAL IVP SCH ×2 (09:20→20:44)
[2020-05-03] MEDS: Nicotine 21 MG PATCH.TD24 TD SCH (09:21)
[2020-05-03 11:02] LABS: VBG HCO3 26 mEq/L (21-27); VBG PCO2 38 mmHg (41-51); VBG PH 7.43 pH Units (7.32-7.42); VBG PO2 199 mmHg (25-50)
[2020-05-03] MEDS ORDERED: Aspirin 325 MG TABLET PO ONE (11:56)
[2020-05-03] MEDS: Apixaban 5 MG TABLET PO SCH (20:44)
[2020-05-03] MEDS ORDERED: QUEtiapine Fumarate 25 MG TABLET PO SCH (21:00)
[2020-05-04 01:31] LABS: Basophils % 0.3 %; Eosinophils # 0.6 K/mcL (0.0-0.6); Hemoglobin 8.9 g/dL (12.9-16.9); Immature Granulocytes % 0.3 % (0-4); Lymphocytes # 0.9 K/mcL (0.6-4.6); Lymphocytes % 9.7 %; Mean Corpuscular HGB Conc 30.7 g/dL (31.6-35.5); Mean Corpuscular Volume 91.2 fL (83.0-100.0); Mean Platelet Volume 9.1 fL (9.4-12.4); Monocytes # 0.9 K/mcL (0.0-1.3); Monocytes % 9.6 %; Neutrophils # 6.8 K/mcL (1.6-8.9); Platelet Count 308 K/mcL (140-400); Red Blood Count 3.18 M/mcL (4.19-5.50); Red Cell Distribution Width 17.8 % (11.5-14.5); Segmented Neutrophils % 74.1 %; White Blood Count 9.2 K/mcL (4.3-11.1)
[2020-05-04] MEDS: Acetaminophen 325 MG TABLET PO PRN (01:33)
[2020-05-04 01:37] LABS: INR 1.5; Prothrombin Time 16.7 Seconds (9.4-12.1)
[2020-05-04 01:44] LABS: Albumin 2.8 g/dL (3.5-5.7); Albumin/Globulin Ratio 0.9 (1.1-2.2); Bilirubin,Total 0.5 mg/dL (0.3-1.0); Calcium 8.2 mg/dL (8.6-10.3); Globulin 3.2 g/dL (2.4-3.5); Potassium 3.5 mEq/L (3.5-5.1)
[2020-05-04 01:45] LABS: Troponin I 0.03 ng/mL (< 0.04)
[2020-05-04] MEDS: Apixaban 5 MG TABLET PO SCH ×2 (08:41→20:07)
[2020-05-04] MEDS: Furosemide 40 MG/4 ML VIAL IVP SCH ×2 (08:43→20:11)
[2020-05-04] MEDS ORDERED: QUEtiapine Fumarate 25 MG TABLET PO SCH (09:00)
[2020-05-04] MEDS: Nicotine 21 MG PATCH.TD24 TD SCH (09:10)
[2020-05-04] MEDS: Hydrocortisone 10 MG TABLET PO SCH (09:10)
[2020-05-04] MEDS: Artificial Tears SOLN 15 ML BOTTLE BOTH EYES SCH ×4 (12:19→20:11)
[2020-05-04] MEDS: Insulin LISPRO 300 UNITS/3 ML VIAL SQ SCH ×2 (12:19→17:30)
[2020-05-04] MEDS: QUEtiapine Fumarate 100 MG TABLET PO SCH (20:07)
[2020-05-04] MEDS ORDERED: *HR* OxyCODONE/APAP 7.5/325 TABLET PO ONE (21:08)
[2020-05-05 04:49] LABS: Basophils % 0.3 %; Eosinophils # 0.3 K/mcL (0.0-0.6); Hematocrit 27.1 % (37.5-50.1); Hemoglobin 8.3 g/dL (12.9-16.9); Immature Granulocytes % 0.3 % (0-4); Lymphocytes # 1.2 K/mcL (0.6-4.6); Lymphocytes % 16.9 %; Mean Corpuscular HGB Conc 30.6 g/dL (31.6-35.5); Mean Corpuscular Hemoglobin 27.9 pg (28.0-33.3); Mean Corpuscular Volume 90.9 fL (83.0-100.0); Mean Platelet Volume 9.3 fL (9.4-12.4); Monocytes # 0.8 K/mcL (0.0-1.3); Monocytes % 12.2 %; Neutrophils # 4.5 K/mcL (1.6-8.9); Platelet Count 311 K/mcL (140-400); Red Blood Count 2.98 M/mcL (4.19-5.50); Red Cell Distribution Width 17.9 % (11.5-14.5); Segmented Neutrophils % 65.3 %; White Blood Count 6.8 K/mcL (4.3-11.1)
[2020-05-05 04:56] LABS: Albumin 2.6 g/dL (3.5-5.7); Albumin/Globulin Ratio 0.9 (1.1-2.2); Bilirubin,Total 0.4 mg/dL (0.3-1.0); Calcium 8.2 mg/dL (8.6-10.3); Potassium 3.2 mEq/L (3.5-5.1); Total Protein 5.6 g/dL (6.4-8.9)
[2020-05-05] MEDS: Insulin LISPRO 300 UNITS/3 ML VIAL SQ SCH ×3 (08:13→16:23)
[2020-05-05] MEDS: Apixaban 5 MG TABLET PO SCH ×2 (08:25→22:31)
[2020-05-05] MEDS: Nicotine 21 MG PATCH.TD24 TD SCH (08:25)
[2020-05-05] MEDS: Furosemide 40 MG/4 ML VIAL IVP SCH ×2 (08:25→22:30)
[2020-05-05] MEDS: Artificial Tears SOLN 15 ML BOTTLE BOTH EYES SCH ×4 (08:34→22:38)
[2020-05-05] MEDS ORDERED: QUEtiapine Fumarate 25 MG TABLET PO SCH (09:00)
[2020-05-05] MEDS ORDERED: Haloperidol Lactate 5 MG/ML VIAL IM ONE (17:01)
[2020-05-05] MEDS: QUEtiapine Fumarate 100 MG TABLET PO SCH (22:31)
[2020-05-06 04:03] LABS: Basophils % 0.6 %; Eosinophils # 0.5 K/mcL (0.0-0.6); Eosinophils % 7.7 %; Hematocrit 26.8 % (37.5-50.1); Hemoglobin 8.3 g/dL (12.9-16.9); Immature Granulocytes % 0.4 % (0-4); Lymphocytes # 1.3 K/mcL (0.6-4.6); Lymphocytes % 18.5 %; Mean Corpuscular Hemoglobin 28.4 pg (28.0-33.3); Mean Corpuscular Volume 91.8 fL (83.0-100.0); Mean Platelet Volume 9.2 fL (9.4-12.4); Monocytes # 0.9 K/mcL (0.0-1.3); Monocytes % 13.2 %; Platelet Count 321 K/mcL (140-400); Red Blood Count 2.92 M/mcL (4.19-5.50); Segmented Neutrophils % 59.6 %; White Blood Count 6.8 K/mcL (4.3-11.1)
[2020-05-06 04:07] LABS: INR 1.8; Prothrombin Time 20.6 Seconds (9.4-12.1)
[2020-05-06 04:25] LABS: Albumin 2.6 g/dL (3.5-5.7); Albumin/Globulin Ratio 0.9 (1.1-2.2); Bilirubin,Total 0.4 mg/dL (0.3-1.0); Calcium 8.1 mg/dL (8.6-10.3); Magnesium 1.7 mg/dL (1.6-2.6); Potassium 3.5 mEq/L (3.5-5.1); Total Protein 5.6 g/dL (6.4-8.9)
[2020-05-06] MEDS ORDERED: 0.9 % Sodium Chloride 2,000 ML ONE (08:18)
[2020-05-06] MEDS: Insulin LISPRO 300 UNITS/3 ML VIAL SQ SCH ×3 (08:21→16:56)
[2020-05-06] MEDS: Apixaban 5 MG TABLET PO SCH ×2 (08:21→20:59)
[2020-05-06] MEDS: Nicotine 21 MG PATCH.TD24 TD SCH (08:22)
[2020-05-06] MEDS: Furosemide 40 MG/4 ML VIAL IVP SCH ×2 (08:22→21:00)
[2020-05-06] MEDS ORDERED: *HR* Heparin 10,000 UNIT/10 ML VIAL IV PRN ×2 (08:34)
[2020-05-06] MEDS ORDERED: 0.9 % Sodium Chloride 250 ML IVC PRN (08:34)
[2020-05-06] MEDS: Artificial Tears SOLN 15 ML BOTTLE BOTH EYES SCH ×4 (08:35→20:59)
[2020-05-06] MEDS: QUEtiapine Fumarate 100 MG TABLET PO SCH ×3 (08:36→21:01)
[2020-05-06] MEDS ORDERED: 0.9 % Sodium Chloride 1,000 ML PRIME SCH (08:45)
[2020-05-06] MEDS: Acetaminophen 325 MG TABLET PO PRN (17:02)
[2020-05-07] MEDS: Acetaminophen 325 MG TABLET PO PRN (01:26)
[2020-05-07 04:08] LABS: Hematocrit 26.3 % (37.5-50.1); Hemoglobin 8.3 g/dL (12.9-16.9); Mean Corpuscular HGB Conc 31.6 g/dL (31.6-35.5); Mean Corpuscular Hemoglobin 28.7 pg (28.0-33.3); Mean Platelet Volume 9.3 fL (9.4-12.4); Platelet Count 277 K/mcL (140-400); Red Blood Count 2.89 M/mcL (4.19-5.50); Red Cell Distribution Width 17.9 % (11.5-14.5); White Blood Count 6.9 K/mcL (4.3-11.1)
[2020-05-07 04:32] LABS: Calcium 7.6 mg/dL (8.6-10.3); Magnesium 1.6 mg/dL (1.6-2.6); Potassium 3.2 mEq/L (3.5-5.1)
[2020-05-07] MEDS: Potassium Chloride Elixir 20 MEQ/15 ML UDC PO ONE ×2 (05:16→05:20)
[2020-05-07] MEDS: Calcium Gluconate 1gm/50mL 1 GM/50 ML BAG IVPB SCH ×2 (05:27→05:59)
[2020-05-07] MEDS: Insulin LISPRO 300 UNITS/3 ML VIAL SQ SCH ×3 (07:54→16:40)
[2020-05-07] MEDS: QUEtiapine Fumarate 100 MG TABLET PO SCH ×2 (08:32→20:11)
[2020-05-07] MEDS: Nicotine 21 MG PATCH.TD24 TD SCH (08:33)
[2020-05-07] MEDS: Artificial Tears SOLN 15 ML BOTTLE BOTH EYES SCH ×4 (08:34→20:12)
[2020-05-07] MEDS: Furosemide 40 MG/4 ML VIAL IVP SCH ×2 (08:34→20:11)
[2020-05-07] MEDS: Apixaban 5 MG TABLET PO SCH (08:45)
[2020-05-07] MEDS ORDERED: *HR* Heparin 5,000 UNIT/ML VIAL IVP PRN ×2 (09:58)
[2020-05-07] MEDS ORDERED: *HR* Heparin 5,000 UNIT/ML VIAL IVP ONE (09:58)
[2020-05-07] MEDS ORDERED: Heparin 25,000 UNIT/250 ML D5W 25,000 UNIT/250 ML IV.SOLN IVC SCH ×2 (10:00→10:15)
[2020-05-08 03:40] LABS: Hematocrit 26.3 % (37.5-50.1); Hemoglobin 8.2 g/dL (12.9-16.9); Mean Corpuscular HGB Conc 31.2 g/dL (31.6-35.5); Mean Corpuscular Hemoglobin 28.5 pg (28.0-33.3); Mean Corpuscular Volume 91.3 fL (83.0-100.0); Mean Platelet Volume 9.2 fL (9.4-12.4); Platelet Count 312 K/mcL (140-400); Red Blood Count 2.88 M/mcL (4.19-5.50); Red Cell Distribution Width 17.8 % (11.5-14.5); White Blood Count 6.7 K/mcL (4.3-11.1)
[2020-05-08 04:02] LABS: Calcium 7.9 mg/dL (8.6-10.3); Potassium 3.3 mEq/L (3.5-5.1)
[2020-05-08] MEDS: Insulin LISPRO 300 UNITS/3 ML VIAL SQ SCH ×3 (07:16→16:50)
[2020-05-08] MEDS ORDERED: 0.9 % Sodium Chloride 250 ML IVC PRN (07:46)
[2020-05-08] MEDS ORDERED: *HR* Heparin 10,000 UNIT/10 ML VIAL IV PRN ×2 (07:46)
[2020-05-08] MEDS ORDERED: 0.9 % Sodium Chloride 1,000 ML PRIME SCH (08:00)
[2020-05-08 10:45] LABS: INR 1.5; Prothrombin Time 16.8 Seconds (9.4-12.1)
[2020-05-08] MEDS: QUEtiapine Fumarate 100 MG TABLET PO SCH ×2 (11:16→20:39)
[2020-05-08] MEDS: Furosemide 40 MG/4 ML VIAL IVP SCH ×2 (11:16→20:38)
[2020-05-08] MEDS: Nicotine 21 MG PATCH.TD24 TD SCH (11:17)
[2020-05-08] MEDS: Artificial Tears SOLN 15 ML BOTTLE BOTH EYES SCH ×4 (11:20→20:39)
[2020-05-08] MEDS ORDERED: *HR* Midazolam HCl 2 MG/2 ML VIAL IVP ONE (12:39)
[2020-05-08] MEDS ORDERED: ceFAZolin 2,000 MG in 0.9 % Sodium Chloride 100 ML IVPB ONE (12:40)
[2020-05-08] MEDS ORDERED: 0.9 % Sodium Chloride 500 ML ONE (12:50)
[2020-05-08] MEDS ORDERED: Heparin 1,000 UNITS/500 mL 500 ML ONE (12:51)
[2020-05-08] MEDS ORDERED: CeFAZolin 2,000 MG/50 ML BAG IVPB ONE (13:15)
[2020-05-08] MEDS ORDERED: *HR* Heparin 5,000 UNIT/ML VIAL ONE (13:15)
[2020-05-08] MEDS: Acetaminophen 325 MG TABLET PO PRN ×2 (14:21→23:02)
[2020-05-08] MEDS ORDERED: Dextrose Gel 15 GM/37.5 ML TUBE PO PRN ×2 (15:24)
[2020-05-08] MEDS ORDERED: D5% in Water 1,000 ML IVC PRN (15:24)
[2020-05-08] MEDS ORDERED: *HR* Dextrose 50 % in Water (Vial) 50 ML VIAL IVP PRN (15:24)
[2020-05-09 04:53] LABS: Basophils # 0.1 K/mcL (0.0-0.2); Basophils % 1.4 %; Eosinophils # 0.4 K/mcL (0.0-0.6); Eosinophils % 5.2 %; Hematocrit 31.1 % (37.5-50.1); Hemoglobin 9.2 g/dL (12.9-16.9); Immature Granulocytes % 0.3 % (0-4); Lymphocytes # 1.3 K/mcL (0.6-4.6); Lymphocytes % 19.3 %; Mean Corpuscular HGB Conc 29.6 g/dL (31.6-35.5); Mean Corpuscular Hemoglobin 27.7 pg (28.0-33.3); Mean Corpuscular Volume 93.7 fL (83.0-100.0); Mean Platelet Volume 9.1 fL (9.4-12.4); Neutrophils # 4.1 K/mcL (1.6-8.9); Platelet Count 302 K/mcL (140-400); Red Blood Count 3.32 M/mcL (4.19-5.50); Red Cell Distribution Width 17.6 % (11.5-14.5); Segmented Neutrophils % 58.8 %; White Blood Count 6.9 K/mcL (4.3-11.1)
[2020-05-09 05:13] LABS: Albumin 2.8 g/dL (3.5-5.7); Albumin/Globulin Ratio 0.9 (1.1-2.2); Bilirubin,Total 0.6 mg/dL (0.3-1.0); Calcium 8.2 mg/dL (8.6-10.3); Globulin 3.2 g/dL (2.4-3.5); Potassium 3.5 mEq/L (3.5-5.1)
[2020-05-09] MEDS: Insulin LISPRO 300 UNITS/3 ML VIAL SQ SCH ×3 (08:28→16:10)
[2020-05-09] MEDS: QUEtiapine Fumarate 100 MG TABLET PO SCH ×3 (08:33→21:41)
[2020-05-09] MEDS: Nicotine 21 MG PATCH.TD24 TD SCH (08:33)
[2020-05-09] MEDS: Furosemide 40 MG/4 ML VIAL IVP SCH ×2 (08:33→19:59)
[2020-05-09] MEDS: Artificial Tears SOLN 15 ML BOTTLE BOTH EYES SCH ×4 (08:34→20:11)
[2020-05-09] MEDS ORDERED: *HR* Heparin 5,000 UNIT/ML VIAL IVP PRN ×2 (09:43)
[2020-05-09] MEDS ORDERED: *HR* Heparin 5,000 UNIT/ML VIAL IVP ONE (09:43)
[2020-05-09] MEDS ORDERED: Heparin 25,000 UNIT/250 ML D5W 25,000 UNIT/250 ML IV.SOLN IVC SCH ×2 (09:45→10:15)
[2020-05-09 11:55] LABS: Appearance of Peritoneal Fl HAZY (Clear)
[2020-05-09 12:00] LABS: RBC,Peritoneal Fluid < 2000 RBC/mcL
[2020-05-09 12:10] LABS: Hematocrit 31.2 % (37.5-50.1); Hemoglobin 9.3 g/dL (12.9-16.9); Mean Corpuscular HGB Conc 29.8 g/dL (31.6-35.5); Platelet Count 284 K/mcL (140-400); Red Blood Count 3.32 M/mcL (4.19-5.50); Red Cell Distribution Width 17.6 % (11.5-14.5); White Blood Count 7.2 K/mcL (4.3-11.1)
[2020-05-09 12:22] LABS: Total Protein,Peritoneal Fluid 3.3 g/dL
[2020-05-09 12:23] LABS: Heparin anti-factor XA UFH 0.51 IU/mL (0.30-0.70); INR 1.5; Prothrombin Time 16.8 Seconds (9.4-12.1)
[2020-05-09] MEDS: Acetaminophen 325 MG TABLET PO PRN ×2 (13:31→19:58)
[2020-05-09 13:47] LABS: Basophils,Peritoneal Fluid 0 %; Eosinophils,Peritoneal Fluid 0 %
[2020-05-09] MEDS: Albumin 25% 25gram/100mL 25 GM/100 ML IV.SOLN IVC SCH ×2 (14:41→16:10)
[2020-05-09] MEDS: Apixaban 5 MG TABLET PO SCH (19:59)
[2020-05-10] MEDS: Acetaminophen 325 MG TABLET PO PRN ×2 (02:11→08:31)
[2020-05-10] MEDS ORDERED: *HR* Metoprolol 5 MG/5 ML VIAL IVP ONE (04:09)
[2020-05-10 05:15] LABS: White Blood Count 6.9 K/mcL (4.3-11.1)
[2020-05-10 05:16] LABS: Basophils # 0.1 K/mcL (0.0-0.2); Basophils % 1.2 %; Eosinophils # 0.3 K/mcL (0.0-0.6); Eosinophils % 4.8 %; Hematocrit 29.1 % (37.5-50.1); Hemoglobin 8.6 g/dL (12.9-16.9); Immature Granulocytes % 0.3 % (0-4); Lymphocytes # 1.2 K/mcL (0.6-4.6); Lymphocytes % 16.9 %; Mean Corpuscular HGB Conc 29.6 g/dL (31.6-35.5); Mean Corpuscular Hemoglobin 27.8 pg (28.0-33.3); Mean Corpuscular Volume 94.2 fL (83.0-100.0); Monocytes # 0.9 K/mcL (0.0-1.3); Monocytes % 12.7 %; Neutrophils # 4.5 K/mcL (1.6-8.9); Platelet Count 280 K/mcL (140-400); Red Blood Count 3.09 M/mcL (4.19-5.50); Red Cell Distribution Width 17.5 % (11.5-14.5); Segmented Neutrophils % 64.1 %
[2020-05-10 05:33] LABS: Albumin/Globulin Ratio 1.1 (1.1-2.2); Bilirubin,Total 0.6 mg/dL (0.3-1.0); Calcium 8.2 mg/dL (8.6-10.3); Globulin 2.8 g/dL (2.4-3.5); Potassium 3.3 mEq/L (3.5-5.1); Total Protein 5.8 g/dL (6.4-8.9)
[2020-05-10] MEDS ORDERED: 0.9 % Sodium Chloride 250 ML IVC PRN (07:27)
[2020-05-10] MEDS ORDERED: *HR* Heparin 10,000 UNIT/10 ML VIAL IV PRN ×2 (07:27)
[2020-05-10] MEDS ORDERED: 0.9 % Sodium Chloride 1,000 ML PRIME SCH (07:30)
[2020-05-10] MEDS: Furosemide 40 MG/4 ML VIAL IVP SCH (08:29)
[2020-05-10] MEDS: QUEtiapine Fumarate 100 MG TABLET PO SCH (08:30)
[2020-05-10] MEDS: Nicotine 21 MG PATCH.TD24 TD SCH (08:31)
[2020-05-10] MEDS: Apixaban 5 MG TABLET PO SCH (08:31)
[2020-05-10] MEDS: Artificial Tears SOLN 15 ML BOTTLE BOTH EYES SCH (08:32)
[2020-05-10] MEDS: Insulin LISPRO 300 UNITS/3 ML VIAL SQ SCH ×2 (08:32→11:51)
[2020-05-10] MEDS ORDERED: *HR* OxyCODONE Immed Rel 5 MG TABLET PO ONE (11:41)
[2020-05-10 12:58] VITALS: BP 145/79
[2020-05-10] MEDS ORDERED: OLANZapine 10 MG VIAL IM ONE (16:13)
[2020-05-10] MEDS ORDERED: Water for inj. (sterile) 10 ML ONE (16:21)
[2020-05-10] MEDS ORDERED: Furosemide 40 MG TABLET PO SCH (17:00)
[2020-05-11 08:22] LABS: Fluid Source for Albumin PERITONEAL FL.
== END 2020-05-10 18:23 | DRG 133 ==
LOC: EMEROOARM 13:09 → ICNU 16:43 → SUATTDRO 16:43 → ICNU 18:10 → 2ANU 04-29 19:47
PROVIDERS: ADMIT Pediatrics; ATTEND Internal Medicine
PROC: IRPERMA (2020-05-08 12:00)